=== PATIENT | female | born 1990 | race African-American/Black ===

== ENCOUNTER 2017-12-28 07:09 | Outpatient (CLI) | payer MEDICAID, SELFPAY ==
[2017-12-28 07:30] LABS: HCT 29.6 % (36.0-46.0); HGB 10.4 g/dL (12.0-15.5); Mean Corp. HGB Concentration 35.1 g/dL (32.0-36.0); Mean Corpuscular Hemoglobin 26.3 pg (27.0-33.0); Mean Corpuscular Volume 74.7 fL (80-95); Mean Platelet Volume 11.6 fL (8.0-11.0); Platelet Count 187 x1000/uL (130-400); RBC 3.96 m/cumm (4.00-5.20); RBC Distribution Width 12.6 % (11.7-14.6)
[2017-12-28 07:43] LABS: Glucose,1 Hr (Glucola) 108 mg/dL (80-140)
== END 2017-12-28 07:10 ==
PROVIDERS: PCP Nurse Practitioner Gerontology; Visit Provider Advanced Practice Midwife
DX: Z34.82 Encounter for supervision of other normal pregnancy, second trimester (principal); Z3A.28 28 weeks gestation of pregnancy
CPT/HCPCS: 36415; 82950; 85027

== ENCOUNTER 2018-02-18 15:33 | Outpatient (REF) | payer MEDICAID, SELFPAY | END 2018-02-18 15:53 | LOC: LBN 15:33 | PROVIDERS: PCP Nurse Practitioner Gerontology; Visit Provider Advanced Practice Midwife | DX: Z34.93 Encounter for supervision of normal pregnancy, unspecified, third trimester (principal); Z36.85 Encounter for antenatal screening for Streptococcus B | CPT/HCPCS: 87081 ==

== ENCOUNTER 2018-03-09 15:25 | Inpatient (IN) | payer MEDICAID, SELFPAY ==
[2018-03-09 16:41] LABS: HCT 30.9 % (36.0-46.0); HGB 10.5 g/dL (12.0-15.5); Mean Corpuscular Hemoglobin 25.3 pg (27.0-33.0); Platelet Count 142 x1000/uL (130-400); RBC 4.15 m/cumm (4.00-5.20); RBC Distribution Width 13.3 % (11.7-14.6); White Blood Cell Count 8.65 k/cumm (4.4-10.8)
[2018-03-09 17:24] LABS: Mean Corpuscular Volume 74.5 fL (80-95)
[2018-03-09] MEDS: Oxytocin 10 UNITS/ML VIAL IM (17:39)
[2018-03-09] MEDS: Hamamelis Leaf/Glycerin 100 EACH BOX PR (18:29)
[2018-03-09] MEDS: Ibuprofen 600 MG TAB PO ×2 (18:29→23:58)
[2018-03-09] MEDS: Acetaminophen 325 MG TAB 650 MG PO ×2 (18:30→22:40)
[2018-03-10] MEDS: Ibuprofen 600 MG TAB PO ×2 (06:35→13:38)
[2018-03-10 11:32] LABS: HCT 26.7 % (36.0-46.0); HGB 9.2 g/dL (12.0-15.5); Mean Corp. HGB Concentration 34.5 g/dL (32.0-36.0); Mean Corpuscular Hemoglobin 25.8 pg (27.0-33.0); Mean Corpuscular Volume 74.8 fL (80-95); Mean Platelet Volume 13.3 fL (8.0-11.0); Platelet Count 143 x1000/uL (130-400); RBC 3.57 m/cumm (4.00-5.20); RBC Distribution Width 13.1 % (11.7-14.6); White Blood Cell Count 11.82 k/cumm (4.4-10.8)
[2018-03-10] MEDS: Acetaminophen 325 MG TAB 650 MG PO ×2 (13:37→17:13)
== END 2018-03-10 20:00 | disposition home or self-care (01) | DRG 807 ==
PROVIDERS: Admitting Provider Advanced Practice Midwife; PCP Nurse Practitioner Gerontology; Visit Provider Advanced Practice Midwife
DX: O69.81X0 Labor and delivery complicated by cord around neck, without compression, not applicable or unspecified (principal); Z37.0 Single live birth; O62.3 Precipitate labor; Z3A.38 38 weeks gestation of pregnancy; O99.02 Anemia complicating childbirth; D64.9 Anemia, unspecified
CPT/HCPCS: 36415; 85027; 86850; 86900; 86901

== ENCOUNTER 2018-04-20 16:38 | Outpatient (CLI) | payer MEDICAID, SELFPAY ==
[2018-04-20 17:27] LABS: PROTEIN 25.2 mg/dL
[2018-04-20 18:32] LABS: HCT 36.1 % (36.0-46.0); HGB 12.3 g/dL (12.0-15.5); Mean Corp. HGB Concentration 34.1 g/dL (32.0-36.0); Mean Corpuscular Hemoglobin 25.1 pg (27.0-33.0); Mean Corpuscular Volume 73.5 fL (80-95); Mean Platelet Volume 12.7 fL (8.0-11.0); Platelet Count 250 x1000/uL (130-400); RBC 4.91 m/cumm (4.00-5.20); RBC Distribution Width 13.5 % (11.7-14.6); White Blood Cell Count 9.39 k/cumm (4.4-10.8)
[2018-04-20 19:22] LABS: COMMENT (LAB VIEW ONLY) 266.74 mg/dL; Prot/Crea Ur Ratio 0.09
[2018-04-20 19:26] LABS: ALT 22 U/L (12-78); AST 14 U/L (15-37); Albumin 3.9 g/dL (3.4-5.0); Alkaline Phosphatase 92 U/L (46-116); Bilirubin, Direct 0.07 mg/dL (0.00-0.20); Bilirubin, Total 0.2 mg/dL (0.2-1.0); CREATININE 0.67 mg/dL (0.55-1.02); Total Protein 7.3 g/dL (6.4-8.2); Uric Acid 4.6 mg/dL (2.6-6.0)
== END 2018-04-20 16:58 ==
PROVIDERS: PCP Nurse Practitioner Gerontology; Visit Provider Advanced Practice Midwife
DX: Z39.2 Encounter for routine postpartum follow-up (principal)
CPT/HCPCS: 36415; 80076; 85027; 82565; 84156; 84550

== ENCOUNTER 2018-04-20 17:17 | Outpatient (REF) | payer MEDICAID, SELFPAY ==
--- NOTE | 2018-04-20 16:15 | PAPFT_PTH ---
PATIENT: Celia Gordon LOC: [facility] U#:[id number] AGE/SX: 28/F ROOM: RE04/20/[address]: Donovan Emmnauel RN : 1990 BED: DIS: 04/20/2018 SPEC #: [id number] RECD: 04/20/18 18:03 STATUS: VALERY REAkhil #: [id number] ZACH: 04/20/18 16:[address]: Donovan Emmanuel DEPT: [facility] Cytology RECD BY: Marylou Lima ENTERED: 04/20/18 18:04 SP TYPE: PAPFT OTHR DR: Gilma Gupta Tissues: 1 - CX/ENDOCX FOR PAP SMEARS Procedures: PAP THIN PREP/[facility] Screening HPV DNA PROBE Comments: [id number]
[2018-04-22 14:45] LABS: Chlamydia Result Negative; GC Result Negative; Specimen Description CERVIX
== END 2018-04-20 17:37 ==
LOC: LBN 17:17
PROVIDERS: PCP Nurse Practitioner Gerontology; Visit Provider Advanced Practice Midwife
DX: Z11.3 Encounter for screening for infections with a predominantly sexual mode of transmission (principal); Z12.4 Encounter for screening for malignant neoplasm of cervix; Z11.51 Encounter for screening for human papillomavirus (HPV); Z39.2 Encounter for routine postpartum follow-up
CPT/HCPCS: 87491; 87591; 88142; 87624

== ENCOUNTER 2019-11-01 12:11 | Outpatient (REF) | payer MEDICAID, SELFPAY ==
[2019-11-01 21:50] LABS: Calculated LDL 94 mg/dL (<100); Cholesterol 171 mg/dL (<200); HDL Cholesterol 49 mg/dL (40-60); Triglyceride 142 mg/dL (<150)
[2019-11-01 22:08] LABS: Hemoglobin A1C 5.7 % (3.8-5.6)
== END 2019-11-01 12:31 ==
LOC: LBN 12:11
PROVIDERS: PCP Nurse Practitioner; Visit Provider Nurse Practitioner
DX: Z13.220 Encounter for screening for lipoid disorders (principal); Z13.1 Encounter for screening for diabetes mellitus
CPT/HCPCS: 80061; 83036

== ENCOUNTER 2020-01-06 08:22 | Outpatient (CLI) | payer MEDICAID, SELFPAY ==
[2020-01-09 20:48] LABS: SARS-CoV-2 RNA Undetected (Undetected); SARS-CoV-2 Specimen Source Nasopharynx
== END 2020-01-06 08:42 ==
PROVIDERS: PCP Nurse Practitioner; Visit Provider Nurse Practitioner
DX: Z11.59 Encounter for screening for other viral diseases (principal)
CPT/HCPCS: U0003

== ENCOUNTER 2020-05-17 11:09 | Outpatient (CLI) | payer MEDICAID, SELFPAY ==
[2020-05-19 15:56] LABS: COVID-19 RT-PCR UVMMC Result Negative (Negative)
== END 2020-05-17 11:29 ==
PROVIDERS: PCP Nurse Practitioner; Visit Provider Nurse Practitioner
DX: Z20.828 Contact with and (suspected) exposure to other viral communicable diseases (principal)
CPT/HCPCS: U0003

== ENCOUNTER 2020-09-10 16:07 | Outpatient (REF) | payer MEDICAID, SELFPAY ==
--- NOTE | 2020-09-10 15:10 | PAPFT_PTH ---
PATIENT: Celia Gordon LOC: [facility]#:[id number] AGE/SX: 30/F ROOM: RE09/10/[address]: Rachel Irby NP : 1990 BED: DIS: 09/10/2020 SPEC #: [id number] RECD: 09/10/20 17:49 STATUS: VALERY REAkhil #: [id number] ZACH: 09/10/20 15:[address]: Mahamed INGRAM,Rachel DEPT: [facility] Cytology RECD BY: Marylou Lima ENTERED: 09/10/20 17:49 SP TYPE: PAPFT OTHR DR: Rocio Camarillo, PhD [employer] Tissues: 1 - CX/ENDOCX FOR PAP SMEARS Procedures: PAP THIN PREP/[facility] Screening Comments: [id number] (CHLAMYDIA/GC)
[2020-09-12 07:13] LABS: Chlamydia Result Negative (Negative); GC Result Negative (Negative)
== END 2020-09-10 16:08 | disposition home or self-care (01) ==
LOC: NCHCN 16:07
PROVIDERS: PCP Nurse Practitioner; Visit Provider Nurse Practitioner Women's Health
DX: Z11.3 Encounter for screening for infections with a predominantly sexual mode of transmission (principal); Z12.4 Encounter for screening for malignant neoplasm of cervix
CPT/HCPCS: 87491; 87591; 88142

== ENCOUNTER 2020-10-01 02:28 | Outpatient (CLI) | payer MEDICAID, SELFPAY ==
--- NOTE | 2020-10-01 06:45 | DI.US_ITS ---
Exam(s) US PELVIS EXAM: US PELVIS CLINICAL HISTORY: Dyspareunia, Pelvic pain, ?R ovarian cyst,R10.2 TECHNIQUE: Ultrasound of the pelvis was performed both transabdominal and transvaginal. COMPARISON: US OB US 2-3 TRIMESTER TRANSABD*P from 10/15/2017 FINDINGS: UTERUS: Nongravid anteverted Measures 8.3 cm length x 4.4 cm AP x 4.7 cm wide. There are no uterine fibroids. Endometrial thickness measures 5-6 mm. There is no fluid in the endometrial canal. CERVIX: There are no obvious nabothian cysts. RIGHT OVARY: Measures 3.6 x 2.1 x 2.0 cm Contains small follicular cysts. All less than 1 cm. LEFT OVARY: Measures 0.9 x 1.6 x 1.6 cm Contains small follicular cysts all less than 1 centimeter. There are no solid lesions in either ovary. No extraovarian adnexal masses. CUL-DE-SAC: No free fluid evident. IMPRESSION: 1. Normal appearing uterus and age-appropriate endometrium. 2. No abnormal ovarian findings. 3. No free fluid evident in the adnexal regions and cul-de-sac. DATA REPOSITORY:
== END 2020-10-01 02:48 ==
PROVIDERS: PCP Nurse Practitioner; Visit Provider Nurse Practitioner Women's Health
DX: R10.2 Pelvic and perineal pain (principal); N94.10 Unspecified dyspareunia; Z11.59 Encounter for screening for other viral diseases
CPT/HCPCS: 76856

== ENCOUNTER 2021-04-01 09:00 | Outpatient (CLI) | payer MEDICAID, SELFPAY ==
[2021-04-01 09:18] LABS: Source Nasal/Nares
[2021-04-01 12:50] LABS: COVID-19 PCR Negative (Negative)
== END 2021-04-01 09:01 | disposition home or self-care (01) ==
LOC: LBN 09:01
PROVIDERS: Family Medicine; PCP Nurse Practitioner; Visit Provider Nurse Practitioner Family
DX: Z20.822 Contact with and (suspected) exposure to COVID-19 (principal)
CPT/HCPCS: 87635

== ENCOUNTER 2021-04-27 15:10 | Emergency (ER) | payer MEDICAID, SELFPAY ==
[2021-04-27] VITALS (19 sets, daily range): BP systolic 116–136; BP diastolic 67–94; PULSE 70–105; RESP 11–31; TEMP 36; O2SAT 98–100
--- NOTE | 2021-04-27 15:15 | RT.EKG_ITS ---
APPROVED REPORT Exam: Resting ECG Reason for Exam: palpitations Patient Location: E HR:89 bpm ECG Measurements Heart Rate 89 AXIS WV 158 P 51 QRSd 77 QRS 62 QT 341 T 33 QTc 415 Conclusion Sinus rhythm...normal P axis, V-rate 60- 99
--- NOTE | 2021-04-27 16:00 | DI.RAD_ITS ---
Exam(s) XR CHEST 1V IN DI DEPT EXAM: XR CHEST 1V IN DI DEPT CLINICAL HISTORY: Palpitations, please shield abdomen TECHNIQUE: 2D digital imaging was performed of the chest. One image was obtained. An AP view was ob tained. COMPARISON: CR CHEST 2 VIEWS PA,LAT from 12/10/2015 FINDINGS: MEDIASTINUM: Normal. HEART: Normal. PULMONARY VASCULATURE: Normal. LUNGS: Clear. PLEURAL SPACE: No pleural effusion or pneumothorax. BONE:Within normal limits for the patient's age. OTHER FINDINGS:Normal. IMPRESSION: No acute pulmonary findings. DATA REPOSITORY: RADIATION DOSE DELIVERED:
--- NOTE | 2021-04-27 16:11 | ED.GENADUL_ITS ---
Discharge Plan Disposition Patient Disposition: HOME Condition: Improving Discharge Details Clinical Impression: PAC (premature atrial contraction) Primary Care Provider: Rocio Camarillo ED Provider: Umesh Esparza Home Meds and New Rx's Prescriptions: Continued PrePlus 27 mg iron- 1 mg tablet 1 tab PO DAILY Qty: 90 RF: 4 labetalol 100 mg tablet 100 mg PO BID Qty: 90 RF: 1 Discharge Instructions Instructions: Premature Atrial Contractions (ED) Additional Instructions: Your monitor today showed evidence of premature atrial contractions. Home to rest. Continue to hydrate with small, frequent sips of fluids. Please follow-up with Dr. Briceno in clinic for recheck. Continue your routine medication. As we discussed I have ordered a Holter monitor to the respiratory therapy department. We will plan on this being placed on Thursday, but you will receive a phone call from the respiratory therapy department. Medical Decision Making 31-year-old female who is 11 weeks . She has a history of hypertension for which she was previously maintained on amlodipine which was switched to labetalol approximate 4 weeks ago due to early . At home today while at rest patient felt palpitations intermittently lasting seconds to minutes and extinguishing on their own. She did not have a fall or syncope. She is no chest pain or shortness of breath. Patient arrives to ER interactive, pleasant, well-appearing and in no acute distress. She is afebrile, blood pressure 130/94 with pulse of 90. Patient placed on a secured entrance monitor that does demonstrate few intermittent PACs. She is referred for screening chest x-ray to rule out cardiomegaly or mass, as well as screening laboratories. Patient's laboratories are reassuring. No significant electrolyte abnormalities. TSH within normal limits. I do feel she will benefit from outpatient Holter monitor which I will order today. We will arrange follow-up in the outpatient setting for recheck. HPI General Mode of arrival: ambulatory . Date/Time Provider Initiated Documentation: 04/27/21 15:20 . Limitations to Documentation: no limitations . Information obtained by: patient . History of Present Illness 31 year old F presents to the emergency department with the chief complaint of Palpitations, 11 weeks , described as mild, and is localized to the chest. Patient started experiencing this hour(s) and it has been intermittent. No relieving factors improve symptom(s), Patient notes denies chest pain, fever/chills, shortness of breath, syncope and weakness. Patient did receive the following treatments prior to arrival, none Related Data Home Medications Medication Instructions Recorded Confirmed labetalol 100 mg tablet 100 mg PO BID #90 tab 03/26/21 04/27/21 vitamin with calcium 1 tab PO DAILY #90 tab 03/26/21 04/27/21 no.72-iron 27 mg-folic acid 1 mg tablet Previous Rx's Medication Instructions Recorded labetalol 100 mg tablet 100 mg PO BID #90 tab 03/26/21 vitamin with calcium 1 tab PO DAILY #90 tab 03/26/21 no.72-iron 27 mg-folic acid 1 mg tablet Allergies Allergy/AdvReac Type Severity Reaction Status Date / Time lactase [From Lactaid] AdvReac Mild Verified 04/27/21 15:50 Estrogens AdvReac Unknown MIGRAINE Verified 04/27/21 15:50 WITH AURA General Stated Complaint: Palpitatns POORNIMA: 2 Review of Systems Narrative: Denies chest pain, shortness of breath. No abdominal pain, no vaginal discharge or bleeding. 6 systems reviewed and otherwise negative PFSH All Active Problems (Updated 04/27/21 @ 17:47 by Umesh Esparza MD) PAC (premature atrial contraction) (Acute) (Acute) Migraine with aura (Acute) Prediabetes (Acute) HTN (hypertension) (Chronic) Medical History Abnormal Pap smear of cervix BMI 34.0-34.9,adult Sickle cell trait Surgical History Cervical Procedure [id number] [facility] Family History Mother Sickle cell trait Essential hypertension Mental disorder Depression Depression Father Sickle cell trait Alcohol abuse Sister Asthma Sister Depression Brother Sickle cell trait Grandmother Essential hypertension Mental disorder Depression Asthma Brother Sickle cell disease Social History Smoking/Tobacco Use Status: Former Tobacco Use Second Hand Exposure: Yes Smoking risk assessment performed?: Yes Alcohol Intake: current Counseling given: No Counseling provided: reduce to 2 or less/day Drug use: Never Substance use type: does not use Counseling given: No Household members: spouse and children Housing: apartment Do you need help understanding health information?: Rarely Pets and animals: No Sexually active: Yes Do you think of yourself as: bisexual Current gender identity: female What is your relationship status?: living with partner How often do you talk on the phone with friends or family?: once per week How often do you get together with friends or relatives?: once per week How often do you attend anglican or taoism services?: decline to answer Do you belong to any clubs or organized social groups?: no Panel score (0-1 are the most socially isolated patients): 1 What type of physical activity do you participate in: walking and bicycling Duration: 30-45 minutes/day Frequency: 3-4 times per week Katerine/Islam: Synagogue Seatbelt use: sometimes Helmet use: No Drive intox or ride w/intox pedicab driver: No Do you feel safe at home: Yes Do you feel safe in your relationship?: Yes Female Reproductive History Menstrual control method: pills (POPs) History History 4 Para 4 Hx # Term Pregnancies Multiple births Hx # Pregnancies Ectopic pregnancies AB induced Hx Number of Living Children AB spontaneous Past Pregnancies Del. Date GA/Weeks # Outcome Route Wgt Sex Labor Lgth Anesthes ia Location [facility] 03/09/18 38 No Successful vaginal 3061.748 g Male 1 hr. 41 min. kellen cruz cnm Exam Narrative Exam Narrative: GEN: awake, alert, oriented 3. Pleasant, well groomed, interactive. HEAD: Normocephalic, atraumatic EYES: PERRL, EOMI NECK: Full ROM, no BLAS, no menigismus CHEST/RESP: Nontender, clear to auscultation bilateral, no wheeze/rhonchi/rales CARDIOVASCULAR: RRR, no murmur, rub luis fernando. 2+ Rad pulse bilateral ABDOMEN: Soft, nontender, no mass. +Bowel sounds EXT: Full ROM, no edema, no rash Neuro: Grossly normal neurologic exam, conversant, interactive. Psych: Speech fluent, thoughts congruent, affect normal Course Vital Signs Vital signs: Vital Signs Temperature 36 C L 04/27/21 15:40 Pulse 90 04/27/21 15:40 Respiratory Rate 18 04/27/21 15:40 Blood Pressure 130/94 H 04/27/21 15:40 Pulse Oximetry 98 04/27/21 15:40 Temperature 36 C L 04/27/21 15:40 Temperature Source Temporal Artery Scan 04/27/21 15:40 Pulse 90 04/27/21 15:40 Respiratory Rate 18 04/27/21 15:40 Respiratory Effort 04/27/21 15:49 Blood Pressure 130/94 H 04/27/21 15:40 Blood Pressure Position Supine 04/27/21 15:40 Pulse Oximetry 98 04/27/21 15:40 Oxygen Delivery Method Room Air 04/27/21 15:40 Oxygen Flow Rate 0 04/27/21 15:40 Pain Level 0 04/27/21 15:40 PAWSS Have you Been Recently Intoxicated or Drunk Within the Last 30 days?: No Have you Ever Experienced Previous Episodes of Alcohol Withdrawal?: No Have you ever Experienced Withdrawal Seizures?: No Have you ever Experienced Delirium Tremens(DT)s?: No Have you ever Experienced Blackouts?: No Have you ever Combined Alcohol with other Downers within the last 90 days?: No Result: 0
[2021-04-27] MEDS: Normal Saline 1,000 ML 1000 ML IV (16:38)
[2021-04-27 16:42] LABS: Abs Immature Grans 0.02 10^3/uL (0.0-0.06); Absolute Basophil Count 0.03 10^3/uL (0.0-0.2); Absolute Eosinophil Count 0.11 10^3/uL (0.0-0.7); Absolute Lymphocyte Count 3.24 10^3/uL (1.2-3.4); Absolute Monocyte Count 0.82 10^3/uL (0.1-0.8); Absolute Neutrophil Count 7.02 10^3/uL (1.2-6.7); Basophils % 0.3; HCT 34.3 % (36.0-46.0); HGB 11.7 g/dL (11.2-15.7); Immature Grans % 0.2; Lymphocytes % 28.8; MCH 25.8 pg (27.0-33.0); MCHC 34.1 % (32.0-36.0); MCV 75.6 fL (80-95); MPV 11.2 fL (8.0-11.0); Monocytes % 7.3; Neutrophils % 62.4; Nucleated RBC 0 %; Platelet Count 286 10^3/uL (130-400); RBC 4.54 10^6/uL (3.93-5.22); RDW 13.5 % (11.7-14.6); RDW-SD 36.6 fL; WBC 11.25 10^3/uL (4.4-10.8)
[2021-04-27 17:06] LABS: TSH 0.54 uIU/mL (0.36-3.74)
[2021-04-27 17:08] LABS: ALT 34 U/L (14-59); AST 23 U/L (15-37); Albumin 3.8 g/dL (3.4-5.0); Alkaline Phosphatase 56 U/L (46-116); Anion Gap 8.1 mmol/L (3-11); BUN 9 mg/dL (7-18); Bilirubin, Total 0.1 mg/dL (0.2-1.0); CO2 25.9 mmol/L (21.0-32.0); CREATININE 0.5 mg/dL (0.55-1.02); Calcium 9.2 mg/dL (8.5-10.1); Chloride 103 mmol/L (98-107); Glucose 85 mg/dL (74-106); Magnesium 2.1 mg/dL (1.8-2.4); Potassium 3.9 mmol/L (3.5-5.1); Sodium 137 mmol/L (136-145); Total Protein 7.6 g/dL (6.4-8.2); Troponin I < 0.05 ng/mL (<0.06)
--- NOTE | 2021-04-27 17:37 | NUR.NOTE ---
Nursing Note: Holter monitor 48hr request faxed to Respiratory Therapy for is possible. Patsy Chan
--- NOTE | 2021-04-27 17:45 | HOLTER_ITS ---
APPROVED REPORT Conclusion This is a 48-hour Holter monitor ordered for palpitations Rhythm throughout was sinus with an average heart rate of 93. Minimum was 66, maximum 138 There was 1 isolated PVC There was no atrial fibrillation, no high-grade AV block, no pauses greater than 3 seconds No patient symptoms were reported
--- NOTE | 2021-04-27 17:50 | DI.VRAD_ITS ---
PROCEDURE INFORMATION: Exam: XR Chest Exam date and time: 04/27/2021 4:11 PM Age: 31 years old Clinical indication: Other: Palpitations TECHNIQUE: Imaging protocol: XR of the chest. Views: 1 view. Total images: 1 COMPARISON: CR CHEST 2 VIEWS PA,LAT 12/10/2015 2:59 PM FINDINGS: Lungs: Lungs are clear. There is no vascular congestion. Pulmonary francisco: Unremarkable contours. Pleural spaces: No pleural effusion or pneumothorax. Heart/Mediastinum: The hilar contours are unremarkable. Mediastinal contours are within normal limits. Bones/joints: Unremarkable. Intraperitoneal space: Visualized upper abdomen is unremarkable. IMPRESSION: No acute findings. Dictated and Authenticated by: Umesh Lauren MD. Ordering:SELINA Calvo MD
--- NOTE | 2021-04-27 18:35 | NUR.NOTE ---
Nursing Note: Referral faxed to [facility] for follow up of palpitations at the end of the week after the holter monitor. Patsy Chan
== END 2021-04-27 17:59 | disposition home or self-care (01) ==
PROVIDERS: Emergency Provider Emergency Medicine; PCP Nurse Practitioner
DX: O26.891 Other specified pregnancy related conditions, first trimester (principal); I49.1 Atrial premature depolarization; Z3A.11 11 weeks gestation of pregnancy; I10 Essential (primary) hypertension
CPT/HCPCS: 36415; 80053; 93005; 96360; 99284; 71045; 83735; 84443; 84484; 85025; 93010; 93225

== ENCOUNTER 2021-04-30 07:30 | Outpatient (RCR) | payer MEDICAID, SELFPAY | END 2021-05-17 23:59 | disposition home or self-care (01) | LOC: RT 07:30 | PROVIDERS: PCP Nurse Practitioner; Visit Provider Emergency Medicine | DX: R00.2 Palpitations (principal) | CPT/HCPCS: 93226 ==

== ENCOUNTER 2021-05-03 03:20 | Outpatient (CLI) | payer MEDICAID, SELFPAY ==
[2021-05-03 10:29] LABS: Kit/Specimen SENT
[2021-05-03 10:51] LABS: Abs Immature Grans 0.03 10^3/uL (0.0-0.06); Absolute Basophil Count 0.02 10^3/uL (0.0-0.2); Absolute Eosinophil Count 0.08 10^3/uL (0.0-0.7); Absolute Lymphocyte Count 2.55 10^3/uL (1.2-3.4); Absolute Monocyte Count 0.63 10^3/uL (0.1-0.8); Absolute Neutrophil Count 5.81 10^3/uL (1.2-6.7); Basophils % 0.2; Eosinophils % 0.9; HCT 31.6 % (36.0-46.0); HGB 10.8 g/dL (11.2-15.7); Immature Grans % 0.3; MCH 25.7 pg (27.0-33.0); MCHC 34.2 % (32.0-36.0); MCV 75.1 fL (80-95); MPV 11.1 fL (8.0-11.0); Monocytes % 6.9; Neutrophils % 63.7; Nucleated RBC 0 %; Platelet Count 261 10^3/uL (130-400); RBC 4.21 10^6/uL (3.93-5.22); RDW 13.2 % (11.7-14.6); RDW-SD 35.8 fL; WBC 9.12 10^3/uL (4.4-10.8)
[2021-05-03 11:42] LABS: TSH (W/Ref FT4) 0.46 uIU/mL (0.36-3.74)
[2021-05-03 11:47] LABS: *AMPHETAMINES SCREEN URINE Negative (Negative); *BARBITURATES SCREEN URINE Negative (Negative); *BENZODIAZEPINES SCREEN URINE Negative (Negative); Cannabinoids THC Negative (Negative); Cocaine Screen,Urine Negative (Negative); METHADONE URINE SCREEN Negative (Negative); OPIATES URINE SCREEN Negative (Negative)
[2021-05-03 11:48] LABS: Tricyclic Antidepressants Negative (Negative)
[2021-05-04 11:27] LABS: HIV-1/2 Ag & Ab Screen Negative (Negative)
[2021-05-06 10:56] LABS: Hepatitis B Surface Ag Negative (Negative)
[2021-05-06 11:22] LABS: Hepatitis C Ab w Rflx HCV PCR Negative (Negative)
[2021-05-06 12:03] LABS: Syphilis Total Ab w/Reflex Nonreactive (Nonreactive)
[2021-05-06 12:38] LABS: Rubella IgG Ab (UVM) Positive (See Note); Varicella IgG Antibody Positive (See Note)
[2021-05-08 10:40] LABS: Result Summary NEGATIVE; Specimen WB Whole Blood
[2021-05-09 12:30] LABS: Buprenorphine Negative ng/mL (Cutoff: 5.0); Norbuprenorphine Negative ng/mL (Cutoff: 2.5)
== END 2021-05-03 03:21 | disposition home or self-care (01) ==
LOC: LBO 03:20
PROVIDERS: PCP Nurse Practitioner; Visit Provider Advanced Practice Midwife
DX: Z34.81 Encounter for supervision of other normal pregnancy, first trimester (principal)
CPT/HCPCS: 80307; 86787; 86803; 86850; 86900; 86901; 87340; 87389; 81220; 84443; 85025; 86762; 86780; 87086

== ENCOUNTER 2021-05-24 03:57 | Outpatient (CLI) | payer MEDICAID, SELFPAY | END 2021-05-24 03:58 | disposition home or self-care (01) | LOC: LBO 03:57 | PROVIDERS: PCP Nurse Practitioner; Visit Provider Advanced Practice Midwife ==

== ENCOUNTER 2021-06-21 00:16 | Outpatient (CLI) | payer MEDICAID, SELFPAY ==
--- NOTE | 2021-06-21 06:35 | DI.US_ITS ---
Exam(s) US OB 2-3 TRIMESTER EXAM: US OB 2-3 TRIMESTER CLINICAL HISTORY: anatomy survey,z34.90. TECHNIQUE: Transabdominal obstetrical ultrasound performed. COMPARISON: US US PELVIS from 10/01/2020 FINDINGS: Transabdominal obstetrical ultrasound performed. FINDINGS: Number of fetuses: One. position: Cephalic heart rate: 140 bpm. Placental location: There is a grade 0 fundal placenta. No evidence of previa. Amniotic fluid index: Amount of fluid is within normal limits. ANATOMICAL SURVEY: Within normal limits. BIOMETRIC DATA: BPD: 4.5cm consistent with 19 weeks 4 days HC: 17.0cm consistent with 19 weeks 4 days AC: 13.9cm consistent with 19 weeks 2 days FL: 2.9cm consistent with 18 weeks 6 days Cisterna Magna: 5 mm Cerebellum: 2.0 cm EFW: 278 grms 10% Composite Age: 19 weeks 2 days EDC by US: 11/13/2021 Heart Rate: 140BPM ANATOMICAL SURVEY: Four-chambered heart: Unremarkable. LVOT: Unremarkable. RVOT: Unremarkable. Left-sided stomach: Unremarkable. urinary bladder: Unremarkable. Bilateral kidneys: Unremarkable. Three-vessel cord: Unremarkable. Cord insertion: Unremarkable. Posterior fossa:Unremarkable. ventricles: Unremarkable. nose: Unremarkable. lips: Unremarkable. palate: Unremarkable. spine: Unremarkable. Two arms and two legs: Unremarkable. IMPRESSION: 1. Single live intrauterine gestation as above. 2. Normal anatomic survey. DATA REPOSITORY:
== END 2021-06-21 00:36 ==
PROVIDERS: PCP Nurse Practitioner; Visit Provider Advanced Practice Midwife
DX: Z34.92 Encounter for supervision of normal pregnancy, unspecified, second trimester (principal); Z3A.19 19 weeks gestation of pregnancy
CPT/HCPCS: 76805

== ENCOUNTER 2021-06-21 17:10 | Outpatient (REF) | payer MEDICAID, SELFPAY ==
[2021-06-24 13:59] LABS: Chlamydia Result Negative (Negative); GC Result Negative (Negative)
== END 2021-06-21 17:11 | disposition home or self-care (01) ==
LOC: LBN 17:10
PROVIDERS: PCP Nurse Practitioner; Visit Provider Advanced Practice Midwife
DX: Z34.92 Encounter for supervision of normal pregnancy, unspecified, second trimester (principal)
CPT/HCPCS: 87491; 87591; 87086

== ENCOUNTER 2021-08-19 04:17 | Outpatient (CLI) | payer MEDICAID, SELFPAY ==
[2021-08-19 10:18] LABS: Glucose,1 Hr (Glucola) 105 mg/dL (80-140)
[2021-08-19 10:20] LABS: HCT 30.6 % (36.0-46.0); HGB 10.3 g/dL (11.2-15.7); MCH 25.6 pg (27.0-33.0); MCHC 33.7 % (32.0-36.0); MCV 75.9 fL (80-95); MPV 12.6 fL (8.0-11.0); Platelet Count 194 10^3/uL (130-400); RBC 4.03 10^6/uL (3.93-5.22); RDW 12.3 % (11.7-14.6); WBC 8.23 10^3/uL (4.4-10.8)
== END 2021-08-19 04:18 | disposition home or self-care (01) ==
LOC: LBO 04:17
PROVIDERS: Advanced Practice Midwife; PCP Nurse Practitioner; Visit Provider Advanced Practice Midwife
DX: Z34.93 Encounter for supervision of normal pregnancy, unspecified, third trimester (principal); Z3A.28 28 weeks gestation of pregnancy
CPT/HCPCS: 36415; 82950; 85027

== ENCOUNTER → 2021-10-01 01:29 | Outpatient (CLI) | payer MEDICAID, SELFPAY ==
--- NOTE | 2021-10-01 07:28 | DI.US_ITS ---
Exam(s) US OB ILZZETTE WEIGHT EXAM: US OB LIZZETTE WEIGHT CLINICAL HISTORY: interval growth, f/u previous us,z86.16,O26.842. TECHNIQUE: Transabdominal obstetrical ultrasound was performed. COMPARISON: US US OB 2-3 TRIMESTER from 06/21/2021 FINDINGS: There is a single viable intrauterine gestation with cardiac activity identified-160 bpm The fetus is presently in cephalic position . Amniotic fluid: There is a normal amount of amniotic fluid with an LIZZETTE of 18.2cm. Placental location: The placenta is anterior grade 2,with no evidence of placenta previa. Dating parameters place this at approximately 35 weeks gestational age, implying MARIBEL of Oct. BPD measures 34 weeks and 6 days HC measures 36 weeks and 0 days AC measures 34 weeks and 6 days FL measures 34 weeks and 0 days Estimated weight is 2498 gm-5 pounds, 8 ounces Fetus is at the 50th percentile on the Hadlock scale. IMPRESSION:: Viable 3rd trimester gestation, as described above. DATA REPOSITORY:
== END ==
PROVIDERS: PCP Nurse Practitioner; Visit Provider Advanced Practice Midwife
DX: O26.843 Uterine size-date discrepancy, third trimester (principal); Z3A.35 35 weeks gestation of pregnancy
CPT/HCPCS: 76816

== ENCOUNTER 2021-10-09 10:09 | Outpatient (REF) | payer MEDICAID, SELFPAY ==
[2021-10-10 15:32] LABS: Chlamydia Result Negative (Negative); GC Result Negative (Negative)
== END 2021-10-09 10:10 | disposition home or self-care (01) ==
LOC: LBN 10:09
PROVIDERS: PCP Nurse Practitioner; Visit Provider Advanced Practice Midwife
DX: Z34.93 Encounter for supervision of normal pregnancy, unspecified, third trimester (principal); Z11.3 Encounter for screening for infections with a predominantly sexual mode of transmission; Z3A.35 35 weeks gestation of pregnancy
CPT/HCPCS: 87491; 87591

== ENCOUNTER 2021-10-16 06:03 | Outpatient (CLI) | payer MEDICAID, SELFPAY ==
[2021-10-16 08:07] VITALS: BP 108/73; PULSE 90; TEMP 36.9
[2021-10-16 08:21] VITALS: BP 108/73; PULSE 90
--- NOTE | 2021-10-16 09:18 | W.OBNST ---
Date of service: 10/16/21 Time of Service: 09:00 NST Evaluation Reason for NST Reasons for Nonstress Test: OTHER, SEE COMMENT Reason for NST Other: Post COVID Gestational Age Gestational Age in Weeks and Days: 36 Weeks and 5Days Test and Monitor Explained Test/Monitor Explained: Test Explained and Monitor Explained Vital Signs Blood Pressure: 108/73 Pulse: 90 Temperature: 98.4 F Urine Results Urine Protein: Negative Urine Ketones: Negative Urine Glucose: Negative Urine Blood: Negative NST Information Date on Monitor: 10/16/21 Time on Monitor: 08:07 Date off Monitor: 10/16/21 Time off Monitor: 08:57 Total Time on Monitor: 50 NST Interventions: PO Hydration NST Evaluation Patient States Movement: Present FHR Baseline: 150 Variability: Moderate 6-25 bpm Accelerations: 15x15 Decelerations: None NST Results: Reactive Note NST Note Note: NST for history of COVID this and HTN currently not on medications. With PO hydration and popsicle NST became reactive No signs of labor. will return on 10/21/21 for NST and office visit. SHANE NST Reviewed and Verified by: Maite Kent
[2021-10-16 09:20] VITALS: BP 108/73; PULSE 90; TEMP 36.9
== END 2021-10-16 09:05 | disposition home or self-care (01) ==
LOC: BCD 06:09 → OBS 07:59
PROVIDERS: PCP Nurse Practitioner; Visit Provider Advanced Practice Midwife
DX: O98.513 Other viral diseases complicating pregnancy, third trimester (principal)
CPT/HCPCS: 59025

== ENCOUNTER 2021-10-16 18:17 | Outpatient (REF) | payer MEDICAID, SELFPAY ==
[2021-10-16 17:05] LABS: *AMPHETAMINES SCREEN URINE Negative (Negative); *BARBITURATES SCREEN URINE Negative (Negative); *BENZODIAZEPINES SCREEN URINE Negative (Negative); Cannabinoids THC Negative (Negative); Cocaine Screen,Urine Negative (Negative); METHADONE URINE SCREEN Negative (Negative); OPIATES URINE SCREEN Negative (Negative)
[2021-10-16 17:10] LABS: Tricyclic Antidepressants Negative (Negative)
[2021-10-23 09:07] LABS: Buprenorphine Negative ng/mL (Cutoff: 5.0); Norbuprenorphine Negative ng/mL (Cutoff: 2.5)
== END 2021-10-16 18:18 | disposition home or self-care (01) ==
LOC: LBN 18:17
PROVIDERS: PCP Nurse Practitioner; Visit Provider Advanced Practice Midwife
DX: Z34.93 Encounter for supervision of normal pregnancy, unspecified, third trimester (principal); Z3A.36 36 weeks gestation of pregnancy; Z36.85 Encounter for antenatal screening for Streptococcus B
CPT/HCPCS: 80307; 87081

== ENCOUNTER 2021-10-21 08:05 | Outpatient (CLI) | payer MEDICAID, SELFPAY ==
[2021-10-21 08:24] VITALS: BP 118/79; PULSE 105; TEMP 36.6
[2021-10-21 09:27] VITALS: BP 118/79; PULSE 105
--- NOTE | 2021-10-21 10:10 | W.OBNST ---
Date of service: 10/21/21 Time of Service: 09:30 NST Evaluation Reason for NST Reasons for Nonstress Test: CHRONIC HYPERTENSION Gestational Age Gestational Age in Weeks and Days: 37 Weeks and 3Days Test and Monitor Explained Test/Monitor Explained: Test Explained, Monitor Explained and Patient Verbalized Understanding Vital Signs Blood Pressure: 118/79 Pulse: 105 Temperature: 97.9 F Urine Results Urine Protein: Negative Urine Ketones: Negative Urine Glucose: Negative Urine Blood: Negative NST Information Date on Monitor: 10/21/21 Time on Monitor: 08:19 Date off Monitor: 10/21/21 Time off Monitor: 09:21 Total Time on Monitor: 62 NST Interventions: PO Hydration NST Evaluation Patient States Movement: Present FHR Baseline: 140 Variability: Moderate 6-25 bpm Accelerations: 15x15 Decelerations: None NST Results: Reactive Note NST Note Note: NST is reactive CAT I NST Reviewed and Verified by: Maite Kent
[2021-10-21 10:11] VITALS: BP 118/79; PULSE 105; TEMP 36.6
== END 2021-10-21 09:30 | disposition home or self-care (01) ==
LOC: BCD 08:07 → OBS 08:13
PROVIDERS: PCP Nurse Practitioner; Visit Provider Advanced Practice Midwife
DX: O13.3 Gestational [pregnancy-induced] hypertension without significant proteinuria, third trimester (principal)
CPT/HCPCS: 59025

== ENCOUNTER 2021-10-24 14:23 | Inpatient (IN) | payer MEDICAID, SELFPAY ==
[2021-10-24] VITALS (14 sets, daily range): BP systolic 102–114; BP diastolic 61–78; PULSE 80–113; RESP 18; TEMP 36.4–37.1
[2021-10-24 14:50] LABS: HCT 29.4 % (36.0-46.0); MCH 25.2 pg (27.0-33.0); MCV 74 fL (80-95); Platelet Count 128 10^3/uL (130-400); RBC 3.97 10^6/uL (3.93-5.22); RDW 13.1 % (11.7-14.6); RDW-SD 35.1 fL
--- NOTE | 2021-10-24 15:01 | HPE_ITS ---
Date of service: 10/24/21 Time of Service: 15:02 Assessment and Plan Assessment and plan (1) Spontaneous onset of labor: Status: Acute Assessment and plan: Admit to Center. Comfort measures. Covid- 19 test. Celia requests to use th etub for comfort. Anticipate . OB-HPI Labor/Delivery History of Present Illness Reason for Visit: NST Chief Complaint: Uterine Contractions. MARIBEL Calculator Estimated Delivery Date Method Current WG Current Estimate 11/13/21 Ultrasound #1 37w 1d Other Estimates 11/06/21 LMP (Certain) 38w 1d Comments: Francisco experienced bleeding and contractions at home. She is here to rule out labor. History of Present Expected Delivery Route/Plan - CNM (collab d/t cHTN) FOB/ - Jose Angel Olsen (2nd baby together) BB yes to circ / GBS neg /Declines IOL Desires to use tub Jose Angel for labor support. Specific Issues/Plan 1. cHTN since last , Labetalol 100 mg daily, 1a. growth ultrasounds monthly. 1b. Stopped labetalol at 27 weeks. Consider IOL at term. 2. Seen in ED for palpitations 04/27, Holter done, f/up with PCP 05/07 3. Pt & FOB are vaccinated against COVID, not boosted 3a. Covid infection 05/29/2021. EFW 10 %ile at 19 wks. Growth scan @ 32 wks 50% LIZZETTE 18.2 4. cfDNA and CF screens drawn 05/03: CF carrier negative, Panorama LR / male 5. BMI 34, early glucola needed. As of 23 wks, pt has not done this test. Will do @ 27 wks 6. Advised to take low dose ASA 81mg/162mg alternating daily, start @ 12 wks 7. HGB C trait, sickle cell trait - neg 08/[address] [facility] 8. Hgb 10.8 with initial labs, consider education and supplement at next visit- she is taking PNV with iron, will recheck at 27 weeks. 8a. Hgb 10.3 at 27 weeks. 9. Desires permanent sterilization. 09/02/21 Medicaid form signed. Pt counseled re: pros and cons of immediate PPTL vs interval tubal. PFSH All Active Problems (Updated 10/24/21 @ 15:05 by Maite Barba CNM) Spontaneous onset of labor (Acute) Screen for STD (sexually transmitted disease) (Acute) History of 2019 novel coronavirus disease (COVID-19) (Acute) COVID+ on 06/07/21 Size of fetus inconsistent with dates in second trimester (Acute) Anemia affecting fifth (Acute) PAC (premature atrial contraction) (Acute) (Acute) Migraine with aura (Acute) Prediabetes (Acute) HTN (hypertension) (Chronic) Medical History Abnormal Pap smear of cervix BMI 34.0-34.9,adult Sickle cell trait Surgical History Cervical Procedure [id number] [facility] Family History Mother Sickle cell trait Essential hypertension Mental disorder Depression Depression Father Sickle cell trait Alcohol abuse Sister Asthma Sister Depression Brother Sickle cell trait Grandmother Essential hypertension Mental disorder Depression Asthma Brother Sickle cell disease Social History Smoking/Tobacco Use Status: Former Tobacco Use Second Hand Exposure: Yes Smoking risk assessment performed?: Yes Alcohol Intake: current Counseling given: No Counseling provided: reduce to 2 or less/day Drug use: Never Substance use type: does not use Counseling given: No Household members: spouse and children Housing: apartment Do you need help understanding health information?: Rarely Pets and animals: No Sexually active: Yes Do you think of yourself as: bisexual Current gender identity: female What is your relationship status?: living with partner How often do you talk on the phone with friends or family?: once per week How often do you get together with friends or relatives?: once per week How often do you attend jainism or adventism services?: decline to answer Do you belong to any clubs or organized social groups?: no Panel score (0-1 are the most socially isolated patients): 1 What type of physical activity do you participate in: walking and bicycling Duration: 30-45 minutes/day Frequency: 3-4 times per week Katerine/Confucianism: Taoism Seatbelt use: sometimes Helmet use: No Drive intox or ride w/intox auto crane driver: No Do you feel safe at home: Yes Do you feel safe in your relationship?: Yes Female Reproductive History Menstrual control method: pills History History 5 Para 4 Hx # Term Pregnancies 4 Multiple births 0 Hx # Pregnancies 0 Ectopic pregnancies 0 AB induced 0 Hx Number of Living Children 4 AB spontaneous 0 Past Pregnancies Del. Date GA/Weeks # Outcome Route Wgt Sex Labor Lgth Anesthes ia Location Prov Complic 11/15/06 39 No Successful vaginal 6 lb 3 oz Female Was age 16 at delivery, 6hr spont labor with 4 hrs of pushing, had epidural [facility] 11/17/09 40 No Successful vaginal 7 lb 3 oz Female 4-5 hr spont labo r [facility] 05/12/12 39 No Successful vaginal 7 lb 2 oz Female 4 hrs, spont labo r [facility] 03/09/18 38 No Successful vaginal 6 lb 12 oz Male 1 hr. 41 min. [facility] [place] Delivery Date: 11/15/06 Last Updated by: Kaye Lucero teen . [place] Delivery Date: 11/17/09 Last Updated by: Kaye Lucero uncomplicated . [place] Delivery Date: 05/12/12 Last Updated by: Kaye Lucero uncomplicated . [place] Delivery Date: 03/09/18 Last Updated by: Kaye Lucero uncomplicated waterbirth, developed HTN at 6 wks , been on anti- HTN med ever since. Jose Angel Meds Allergies and Home Medications Allergies Allergy/AdvReac Type Severity Reaction Status Date / Time lactase [From Lactaid] AdvReac Mild Verified 10/21/21 10:02 Estrogens AdvReac Unknown MIGRAINE Verified 10/21/21 10:02 WITH AURA Home Medications Medication Instructions Recorded Confirmed Type vitamin with calcium 1 tab PO DAILY #90 tabs 03/26/21 10/21/21 Rx no.72-iron 27 mg-folic acid 1 mg tablet (PrePlus) aspirin 81 mg tablet,delayed 81 mg PO DAILY #90 tabs 05/03/21 10/21/21 Rx release ferrous sulfate 324 mg (65 mg 324 mg PO DAILY #90 tabs 08/19/21 10/21/21 Rx iron) tablet,delayed release Exam Physical Exam Vital signs: Temp Pulse BP 98.8 F 108 H 114/76 10/24/21 13:42 10/24/21 13:42 10/24/21 13:42 Detailed Labor and Delivery Exam Dilation: 6 Effacement (%): 90 station: -2 Cervix position: mid Consistency: soft Fox Score: Cervical Points Exam 0 1 2 3 Dilation Closed 1-2cm 3-4 cm 5-6cm Effacement 0-30% 40-50% 60-70% 80% Consistency Firm Medium Soft Station -3 -2 -1,0 +1,+2 Position Posterior Mid Anterior Amniotic Membrane Status: Intact Monitor Mode: External Contraction Frequency(min): every 3-4 Contraction Duration(sec): 60 Fetus A Heart Rate Baseline: 140 Monitor Accelerations: 15 X 15 Monitor Decelerations: None Variability: Moderate (6-25 BPM) Presentation: Vertex Categories: Category I Respiratory Exam Respiratory Exam: Normal Cardiovascular Exam Cardiovascular Exam: Normal Abdominal Exam Abdominal Exam: Normal Exam Exam: Normal Extremities Exam Extremities Exam: Normal Skin Exam Skin Exam: Normal Results Abnormal Lab Findings: Abnormal Labs 10/24/21 14:40 Hgb 10.0 L Hct 29.4 L MCV 74 L MCH 25.2 L Plt Count 128 L Risk Assessment Risk for Shoulder Dystocia Historical/Initial OB: POSITIVE FOR: Pre- BMI>30; NEGATIVE FOR: Pelvic Abnormality, Previous Shoulder Dystocia or Previous Macrosomia Increased Risk?: No Delivery Plan @ 36wks: NVD expected. KH Risk for Pre-Eclampsia Date Initiated/Initials: start 81 mg ASA @ 12 wk Yes, if one or more: POSTIVE FOR: Chronic HTN; NEGATIVE FOR: Hx Pre-E/Gest HTN, Multiple Gestation, Pre-gestational DM, Renal Disease, Systemic Lupus or APA Syndrome Yes, if 2 or more: POSITIVE FOR: BMI>30 and ethinicty; NEGATIVE FOR: Nulliparity, Age>= 35 yrs, >10yr btwn pregnancies, Mother/Sister w/ Pre-E or Previous IUGR Risk for Post- Hemorrhage Initial: NEGATIVE FOR: Multiple Gestation, Previous PPH, Known Clotting Deficiency, Grand Multiparity or Anticoagulation At Risk?: No Risks Reviewed Risks Reviewed Upon Admission: Yes
[2021-10-24 15:51] LABS: Source Nasal/Nares
--- NOTE | 2021-10-24 16:44 | W.OBNST ---
Date of service: 10/24/21 Time of Service: 16:44 NST Evaluation Reason for NST Reasons for Nonstress Test: OTHER, SEE COMMENT Reason for NST Other: rule out labor Gestational Age Gestational Age in Weeks and Days: 37 Weeks and 1Days Test and Monitor Explained Test/Monitor Explained: Test Explained Vital Signs Blood Pressure: 114/76 Pulse: 108 Temperature: 98.8 F NST Information Date on Monitor: 10/24/21 Time on Monitor: 13:36 Date off Monitor: 10/24/21 Time off Monitor: 14:50 Total Time on Monitor: 74 NST Interventions: PO Hydration and Notify Provider NST Evaluation Patient States Movement: Present FHR Baseline: 150 Variability: Moderate 6-25 bpm Decelerations: Early NST Results: Reactive Note NST Note Note: recative NST. Having resular moderate strength contractions, admitted in early labor NST Reviewed and Verified by: Maite Barba
[2021-10-24 16:45] LABS: COVID-19 PCR Negative (Negative)
--- NOTE | 2021-10-24 20:28 | W.PM.OBNL1 ---
Date of service: 10/24/21 Time of Service: 20:28 Pelvic Exam Dilation: 6 Effacement (%): 100 Cervix Position: posterior Consistency: soft Contractions Monitor Mode: External Contraction Frequency(min): every 4 Contraction Duration(sec): 60 Intensity: Moderate Fetus A Monitor: External (US) Heart Rate Baseline: 130 Presentation: Vertex Variability: Moderate (6-25 BPM) Categories: Category I FHR Rhythm: Regular Accelerations: 15 X 15 Decelerations: None Amniotic Membrane Status: Ruptured Rupture Method: Artifical Amniotic Fluid: Clear Amount: moderate Assessment and Plan Assessment and plan (1) Spontaneous onset of labor: Status: Acute Assessment and plan: Comfort measures. Anticipate Objective Abnormal lab results 10/24/21 Range/Units 14:40 Hgb 10.0 L (11.2-15.7) g/dL Hct 29.4 L (36.0-46.0) % MCV 74 L (80-95) fL MCH 25.2 L (27.0-33.0) pg Plt Count 128 L (130-400) 10^3/uL Temp Pulse BP 97.5 F L 92 H 111/75 10/24/21 17:00 10/24/21 20:24 10/24/21 20:24 Laboratory Results WBC 8.00 10^3/uL (4.4-10.8) 10/24/21 14:40 RBC 3.97 10^6/uL (3.93-5.22) 10/24/21 14:40 Hgb 10.0 g/dL (11.2-15.7) L 10/24/21 14:40 Hct 29.4 % (36.0-46.0) L 10/24/21 14:40 MCV 74 fL (80-95) L 10/24/21 14:40 MCH 25.2 pg (27.0-33.0) L 10/24/21 14:40 MCHC 34.0 % (32.0-36.0) 10/24/21 14:40 RDW 13.1 % (11.7-14.6) 10/24/21 14:40 Plt Count 128 10^3/uL (130-400) L 10/24/21 14:40 MPV fL (8.0-11.0) 10/24/21 14:40 COVID-19 Source Nasal/Nares 10/24/21 15:35 SARS-CoV-2 (PCR) Negative (Negative) 10/24/21 15:35 Patient ABO/Rh A Positive 10/24/21 14:40 Antibody Screen NEGATIVE 10/24/21 14:40 Results Hemoglobin/Hematocrit: Hgb 10.0 g/dL (11.2-15.7) L 10/24/21 14:40 Hct 29.4 % (36.0-46.0) L 10/24/21 14:40 Abnormal Lab Findings: Abnormal Labs 10/24/21 14:40 Hgb 10.0 L Hct 29.4 L MCV 74 L MCH 25.2 L Plt Count 128 L
--- NOTE | 2021-10-24 20:55 | W.OBDELIVERY ---
Date of service: 10/24/21 Time of Service: 20:56 OB Labor/ Delivery Information Baby A Delivery Delivery Method: Spontaneaous Presentation: Vertex Amniotic Fluid: Clear Estimated Blood Loss: 250 Delivery Outcome: Liveborn Complications: none Infant Transferred: Remains with Mother Note: FHTs 140 during first stage of labor. FHTs 130 in second stage. Celia used the tub for comfort. She rogressed to full dilation and began bearing down in the tub. Second stage huddle was done. Spontaneous delivery of male delivered in ELVIS position. Baby was placed on mother's abdomen and had a spontaneous cry. Cord was clamped and cut by the baby's father Jose Angel. The placenta delivered spontaneously in the tub and appears to be intact with a three vessel cord. Celia was transferred to the bed and Pitocin 10 units was administered. The perineum was inspected and was intact. The baby did breastfeed. After delivery, Mother and baby and father of the baby were stable and bonding well in the delivery room and there were no complications. Providers Nurse Science Education Professor: Maite Barba Nurse: Corie Mcmahon Nurse: Kolby Keys Labor/Delivery Information Number of Babies in Womb: 1 Steroids Given: None Shoulder Dystocia: No Stages of Labor Onset of Labor Date: 10/24/21 Onset of Labor Time: 02:00 Complete Dilatation Date: 10/24/21 Labor - Stage 1 Duration: 0 minutes ROM Baby A: 10/24/21 ROM Baby A: 17:50 Delivery Date-Baby A: 10/24/21 Delivery Time-Baby A: 19:55 Placenta Delivery Date-Baby A: 10/24/21 Placenta Delivery Time-Baby A: 20:02 Labor-Stage 3 Duration: 7 minutes Total Length of Labor-Baby A: 17 hours and 55 minutes Placenta Status: Delivered Baby A Infant Gender: Male Gestational Status: Early Term (37-38.6 wks) Gestational Age in Weeks/Days: 37 Weeks and 1 Days Score-1 Minute Interval(Baby A) Heart Rate-1 minute: 100 BPM or Greater Respiratory Effort- 1 minute: Spontaneous/Strong Cry Muscle Tone-1 minute: Active Movement Reflex Response-1 minute: Prompt Response Color-1 minute: Bluish Hands or Feet Total Score-1 minute: 9 Score-5 Minute Interval(Baby A) Heart Rate- 5 minute: 100 BPM or Greater Respiratory Effort-5 minute: Spontaneous/Strong Cry Muscle Tone-5 minute: Active Movement Reflex Response-5 minute: Prompt Response Color-5 minute: Bluish Hands or Feet Total Score- 5 minute: 9
[2021-10-24] MEDS: Acetaminophen 325 MG TAB 650 MG PO (21:21)
[2021-10-24] MEDS: Ibuprofen 600 MG TAB PO (21:21)
[2021-10-25 00:08] VITALS: BP 110/61; PULSE 87; RESP 18; TEMP 36.6
[2021-10-25] MEDS: Acetaminophen 325 MG TAB 650 MG PO ×3 (06:50→15:27)
[2021-10-25 07:45] VITALS: BP 112/58; PULSE 80; RESP 12; TEMP 36.7
[2021-10-25] MEDS: Ibuprofen 600 MG TAB PO ×2 (11:11→17:10)
--- NOTE | 2021-10-25 11:49 | W.PM.OBPNV1 ---
Date of service: 10/25/21 Time of Service: 11:49 Assessment and Plan Assessment and plan (1) Term of male : Status: Acute Assessment and plan: Caring for baby independently. Pain is managed well with oral analgesics. Voiding without difficulty. slowly and receiving assistance. A - stable mother and baby , Post day 1 P - Discharge to home tomorrow pending infant's condition . Routine post instructions. [facility] Subjective Subjective Patient comments: No complaints Patient's Mood: good baby status: Other (sleepy, gagging on mucus, occasionally latching at the breast) [place] feeding status: Exclusively breast feeding (small formula supplement given by mother last night) Exam Physical Exam Vital signs: Temp Pulse Resp BP 98.1 F 80 12 112/58 L 10/25/21 07:45 10/25/21 07:45 10/25/21 07:45 10/25/21 07:45 Respiratory Exam Respiratory Exam: Normal Cardiovascular Exam Cardiovascular Exam: Normal Fundal Exam Fundus: Below Umbilicus and Firm Rectal Exam Rectal Exam: Normal Extremities Exam Extremity Exam: Normal Skin Exam Skin Exam: Normal Psychiatric Exam Psychiatric Exam: Normal Results Hemoglobin/Hematocrit: Hgb 10.0 g/dL (11.2-15.7) L 10/24/21 14:40 Hct 29.4 % (36.0-46.0) L 10/24/21 14:40 Abnormal Lab Findings: Abnormal Labs 10/24/21 14:40 Hgb 10.0 L Hct 29.4 L MCV 74 L MCH 25.2 L Plt Count 128 L
[2021-10-25 15:23] VITALS: BP 114/78; PULSE 83; RESP 17; TEMP 36.7; O2SAT 99
[2021-10-26] MEDS: Ibuprofen 600 MG TAB PO (04:42)
[2021-10-26] MEDS: Acetaminophen 325 MG TAB 650 MG PO (04:42)
[2021-10-26 04:50] VITALS: RESP 18
--- NOTE | 2021-10-26 08:22 | W.PM.OBPNV1 ---
Date of service: 10/26/21 Time of Service: : Assessment and Plan Assessment and plan (1) Term of male : Status: Acute Assessment and plan: A: PPD#2, nml recovery Pleased with experience well, pt choosing to supplement w/formula Normotensive now and throughout third trimester without medication Hgb @ 10 upon admission, pt remains asymptomatic P: Plan for discharge to home today Continue support as needed and desired Nwbn circumcision prior to discharge F/up at 2 & 6 wks Desires BTL @ 8 wks Written instructions reviewed and given to pt (2) Anemia affecting fifth : Status: Acute Assessment and plan: Resume iron supplement after first bowel movement Will monitor Hgb @ appt's Subjective Subjective Patient comments: No complaints, Pain well controlled, Tolerating diet and Flatus present baby status: Doing well, Nursing well, Supplemental feeding going well, Rooming in and Strong Bonding Observed feeding status: Breast and formula feeding Narrative: Experienced mom, handles confidently and competently. FOB in room effectively supportive. Exam Physical Exam Vital signs: Temp Pulse Resp BP Pulse Ox 98.0 F 83 18 114/78 99 10/25/21 15:23 10/25/21 15:23 10/26/21 04:50 10/25/21 15:23 10/25/21 15:23 Vital Signs Reviewed: Yes Constitutional Constitutional: no acute distress and obese HEENT Exam HEENT Exam: Normal Neck Exam Neck Exam: Normal Breast Exam Bilateral: Breast Exam: Normal and Soft Nipple Exam: Normal and Uninjured Respiratory Exam Respiratory Exam: Normal Cardiovascular Exam Cardiovascular Exam: Normal Abdominal Exam Abdomen: Other (soft , nontender) Fundal Exam Fundus: Below Umbilicus and Firm Rectal Exam Rectal Exam: Not Done Exam Perineum: Intact and Normal Extremities Exam Extremity Exam: Normal, Full ROM and Warm to Touch Back/Spine/Pelvis Exam Back Exam: Normal Skin Exam Skin Exam: Normal Neurological Exam Neurological Exam: Normal Psychiatric Exam Psychiatric Exam: Normal Results Hemoglobin/Hematocrit: Hgb 10.0 g/dL (11.2-15.7) L 10/24/21 14:40 Hct 29.4 % (36.0-46.0) L 10/24/21 14:40 Abnormal Lab Findings: Abnormal Labs 10/24/21 14:40 Hgb 10.0 L Hct 29.4 L MCV 74 L MCH 25.2 L Plt Count 128 L
--- NOTE | 2021-10-26 08:38 | DSE_ITS ---
Date of service: 10/26/21 Time of Service: 08:38 DS: Diagnosis Discharge Diagnosis (1) Term of male : Status: Acute (2) Anemia affecting fifth : Status: Acute Discharge Plan Disposition Patient Disposition: HOME Condition: Good Discharge Details Reason For Visit: Labor Admit Date/Time: 10/24/21 14:23 Admit Provider: Maite Barba Attending Provider: Maite Barba Primary Care Provider: Rocio Camarillo Hospital Course Hospital Course: , nml course, normotensive without medication. Home Meds and New Rx's Prescriptions: No Action PrePlus 27 mg iron- 1 mg tablet 1 tab PO DAILY Qty: 90 4RF ferrous sulfate 324 mg (65 mg iron) tablet,delayed release (DR/EC) 324 mg PO DAILY Qty: 90 0RF Discharge Instructions Additional Instructions: Please keep your 2 and 6 week appointments with the seam rubber. If you are feeling well and infant feeding is going well, your 2 week appt can be via telehealth if you prefer, just call the office to let us know. We will plan on scheduling your pre-op appt with an MD in preparation for tubal ligation after the 2 week appt. Make sure you take your iron supplement every day with a vitamin C containing food or drink. Call any time for questions or concerns. Stand Alone Forms: BC Instructions, BC Post Vaginal Deliver Activity:: Activity as Tolerated Equipment/Supplies:: No Equipment Needed Diet:: Normal Diet Discharge Orders Discharge Orders: Discharge Order (Routine); Ordered 10/26/21 Ordered By: Michelle Lucero OB:DS Summary Summary Vaginal Delivery Method: Spontaneaous Episiotomy Description: None Laceration Description: None Laceration Extension: N/A Contraception Discussed Contraception Discussed: Yes Contraceptive Plan: Tubal Ligation, [place] Gender-Baby A: Male weight: 6 lb 9.469 oz Status at Discharge Functional status at discharge: independent ambulation Overall status at discharge: patient is progressing back to baseline Mental Status: mental status grossly normal Speech and Movement: speech and movement normal and speech clear Mood: congruent mood Affect: normal affect Exam Physical Exam Vital signs: Temp Pulse Resp BP Pulse Ox 98.0 F 83 18 114/78 99 10/25/21 15:23 10/25/21 15:23 10/26/21 04:50 10/25/21 15:23 10/25/21 15:23 Vital Signs Reviewed: Yes Constitutional Constitutional: no acute distress and obese HEENT Exam HEENT Exam: Normal Neck Exam Neck Exam: Normal Breast Exam Bilateral: Breast Exam: Normal and Soft Respiratory Exam Respiratory Exam: Normal Cardiovascular Exam Cardiovascular Exam: Normal Abdominal Exam Abdomen: Other (soft , nontender) Fundal Exam Fundus: Below Umbilicus and Firm Rectal Exam Rectal Exam: Not Done Exam Perineum: Intact and Normal Extremities Exam Extremity Exam: Normal, Full ROM and Warm to Touch Back/Spine/Pelvis Exam Back Exam: Normal Skin Exam Skin Exam: Normal Neurological Exam Neurological Exam: Normal Psychiatric Exam Psychiatric Exam: Normal PFSH All Active Problems (Updated 10/26/21 @ 07:47 by Michelle Lucero) Term of male (Acute) Anemia affecting fifth (Acute) PAC (premature atrial contraction) (Acute) Migraine with aura (Acute) Prediabetes (Acute) HTN (hypertension) (Chronic) Medical History (Updated 10/26/21 @ 07:47 by Michelle Lucero) [facility] BMI 34.0-34.9,adult History of 2019 novel coronavirus disease (COVID-19) COVID+ on 06/07/21 Screen for STD (sexually transmitted disease) Sickle cell trait Size of fetus inconsistent with dates in second trimester Family History Mother Sickle cell trait Essential hypertension Mental disorder Depression Depression Father Sickle cell trait Alcohol abuse Sister Asthma Sister Depression Brother Sickle cell trait Grandmother Essential hypertension Mental disorder Depression Asthma Brother Sickle cell disease Social History Smoking/Tobacco Use Status: Former Tobacco Use Second Hand Exposure: Yes Smoking risk assessment performed?: Yes Alcohol Intake: current Counseling given: No Counseling provided: reduce to 2 or less/day Drug use: Never Substance use type: does not use Counseling given: No Household members: spouse and children Housing: apartment Do you need help understanding health information?: Rarely Pets and animals: No Sexually active: Yes Do you think of yourself as: bisexual Current gender identity: female What is your relationship status?: living with partner How often do you talk on the phone with friends or family?: once per week How often do you get together with friends or relatives?: once per week How often do you attend advent or taoism services?: decline to answer Do you belong to any clubs or organized social groups?: no Panel score (0-1 are the most socially isolated patients): 1 What type of physical activity do you participate in: walking and bicycling Duration: 30-45 minutes/day Frequency: 3-4 times per week Katerine/Gnosticist: Quaker Seatbelt use: sometimes Helmet use: No Drive intox or ride w/intox truck driver's offsider: No Do you feel safe at home: Yes Do you feel safe in your relationship?: Yes Female Reproductive History Menstrual control method: pills History History 5 Para 4 Hx # Term Pregnancies 4 Multiple births 0 Hx # Pregnancies 0 Ectopic pregnancies 0 AB induced 0 Hx Number of Living Children 4 AB spontaneous 0 Past Pregnancies Del. Date GA/Weeks # Outcome Route Wgt Sex Labor Lgth Anesthes ia Location Prov [facility] 11/15/06 39 No Successful vaginal 6 lb 3 oz Female Was age 16 at delivery, 6hr spont labor with 4 hrs of pushing, had epidural [facility] 11/17/09 40 No Successful vaginal 7 lb 3 oz Female 4-5 hr spont labo r [facility] 05/12/12 39 No Successful vaginal 7 lb 2 oz Female 4 hrs, spont labo r [facility] 03/09/18 38 No Successful vaginal 6 lb 12 oz Male 1 hr. 41 min. [facility] - [facility] Delivery Date: 11/15/06 Last Updated by: Kaye Lucero teen . [place] Delivery Date: 11/17/09 Last Updated by: Kaye Lucero uncomplicated . [place] Delivery Date: 05/12/12 Last Updated by: Kaye Lucero uncomplicated . [place] Delivery Date: 03/09/18 Last Updated by: Kaye Lucero uncomplicated waterbirth, developed HTN at 6 wks , been on anti- HTN med ever since. Jose Angel PINO: Data Vitals/I&O Vitals and I&O: Vital Signs Temperature 98.0 F 10/25/21 15:23 Pulse 83 10/25/21 15:23 Pulse Rhythm Regular 10/26/21 00:42 Respiratory Rate 18 10/26/21 04:50 Respiratory Depth Normal 10/25/21 15:20 Blood Pressure 114/78 10/25/21 15:23 Blood Pressure Mean 90 10/25/21 15:23 Pulse Oximetry 99 10/25/21 15:23 Oxygen Delivery Method Room Air 10/24/21 15:21 Oxygen Flow Rate 0 10/24/21 15:21 Pain Level 2 10/25/21 15:23 Intake & Output 10/25/21 10/25/21 10/26/21 11:59 23:59 11:59 Output Total 550 / 550 Balance -550 / -550 Output: Urine 550 / 550
[2021-10-26 09:00] VITALS: BP 110/74; PULSE 78; RESP 21; TEMP 36.8
== END 2021-10-26 13:10 | disposition home or self-care (01) | DRG 805 ==
LOC: OBS 10-25 08:22 → BCD 10-25 09:04
PROVIDERS: Admitting Provider Advanced Practice Midwife; PCP Nurse Practitioner; Visit Provider Advanced Practice Midwife
DX: O99.02 Anemia complicating childbirth (principal); O99.42 Diseases of the circulatory system complicating childbirth; Z37.0 Single live birth; O10.02 Pre-existing essential hypertension complicating childbirth; O99.354 Diseases of the nervous system complicating childbirth; Z3A.37 37 weeks gestation of pregnancy; O99.892 Other specified diseases and conditions complicating childbirth; R73.03 Prediabetes; I49.1 Atrial premature depolarization; G43.109 Migraine with aura, not intractable, without status migrainosus
CPT/HCPCS: 85027; 86850; 86900; 86901; 87635; 59025; J3490

== ENCOUNTER 2021-11-07 14:57 | Outpatient (REF) | payer MEDICAID, SELFPAY ==
[2021-11-08 14:49] LABS: Chlamydia Result Negative (Negative); GC Result Negative (Negative)
== END 2021-11-07 14:58 | disposition home or self-care (01) ==
LOC: LBN 14:57
PROVIDERS: PCP Nurse Practitioner; Visit Provider Advanced Practice Midwife
DX: Z11.3 Encounter for screening for infections with a predominantly sexual mode of transmission (principal)
CPT/HCPCS: 87491; 87591

== ENCOUNTER 2021-12-05 01:16 | Outpatient (CLI) | payer MEDICAID, SELFPAY | END 2021-12-05 01:17 | disposition home or self-care (01) | LOC: LBO 01:16 | PROVIDERS: PCP Nurse Practitioner; Visit Provider Advanced Practice Midwife ==

== ENCOUNTER 2021-12-24 18:25 | Outpatient (REF) | payer MEDICAID, SELFPAY ==
[2021-12-25 13:40] LABS: Chlamydia Result Negative (Negative); GC Result Negative (Negative)
== END 2021-12-24 18:26 | disposition home or self-care (01) ==
LOC: LBN 18:25
PROVIDERS: PCP Nurse Practitioner; Visit Provider Advanced Practice Midwife
DX: Z11.3 Encounter for screening for infections with a predominantly sexual mode of transmission (principal)
CPT/HCPCS: 87491; 87591

== ENCOUNTER 2022-02-04 16:03 | Outpatient (REF) | payer MEDICAID, SELFPAY ==
[2022-02-06 12:55] LABS: Chlamydia Result Negative (Negative); GC Result Negative (Negative)
== END 2022-02-04 16:04 | disposition home or self-care (01) ==
LOC: LBN 16:03
PROVIDERS: PCP Nurse Practitioner; Visit Provider Advanced Practice Midwife
DX: Z11.3 Encounter for screening for infections with a predominantly sexual mode of transmission (principal); Z30.430 Encounter for insertion of intrauterine contraceptive device
CPT/HCPCS: 87491; 87591

== ENCOUNTER 2022-08-15 08:26 | Outpatient (CLI) | payer MEDICAID, SELFPAY ==
--- NOTE | 2022-08-15 08:15 | RT.EKG_ITS ---
APPROVED REPORT Exam: Resting ECG Reason for Exam: pre-op Patient Location: O HR:77 bpm ECG Measurements Heart Rate 77 AXIS VT 165 P 47 QRSd 76 QRS 55 QT 374 T 27 QTc 424 Conclusion Sinus rhythm...normal P axis, V-rate 50- 99 Probable left atrial enlargement...P >50mS, <-0.10mV V1 Otherwise normal ECG
== END 2022-08-15 08:27 | disposition home or self-care (01) ==
LOC: DI.CM 08:27
PROVIDERS: PCP Nurse Practitioner Family; Visit Provider Nurse Practitioner Family
DX: Z01.818 Encounter for other preprocedural examination (principal)
CPT/HCPCS: 93010

== ENCOUNTER 2022-08-15 11:36 | Outpatient (CLI) | payer MEDICAID, SELFPAY ==
--- NOTE | 2022-08-15 10:00 | DI.RAD_ITS ---
Exam(s) XR CHEST 2V PA LATERAL EXAM: XR CHEST 2V PA LATERAL CLINICAL HISTORY: preop x-ray, Z01.818 TECHNIQUE: 2D digital imaging was performed. COMPARISON: CR,XR XR CHEST 1V IN DI DEPT from 04/27/2021 FINDINGS: HEART: Normal size. Aorta: Not dilated. PULMONARY VASCULATURE: Normal. LUNGS: Clear. PLEURAL SPACE: No pleural effusion or pneumothorax. BONE:Unremarkable for age. IMPRESSION: No acute abnormality. DATA REPOSITORY: RADIATION DOSE DELIVERED:
== END 2022-08-15 11:56 ==
LOC: DI 11:37
PROVIDERS: PCP Nurse Practitioner Family; Visit Provider Nurse Practitioner Family
DX: I10 Essential (primary) hypertension (principal); Z01.818 Encounter for other preprocedural examination
CPT/HCPCS: 71046

== ENCOUNTER 2022-08-18 03:39 | Outpatient (CLI) | payer MEDICAID, SELFPAY ==
[2022-08-18 12:20] LABS: Abs Immature Grans 0.01 10^3/uL (0.0-0.06); Absolute Basophil Count 0.03 10^3/uL (0.0-0.2); Absolute Eosinophil Count 0.05 10^3/uL (0.0-0.7); Absolute Lymphocyte Count 2.44 10^3/uL (1.2-3.4); Absolute Monocyte Count 0.56 10^3/uL (0.1-0.8); Basophils % 0.4; Eosinophils % 0.7; HCT 34.3 % (36.0-46.0); HGB 11.9 g/dL (11.2-15.7); Immature Grans % 0.1; Lymphocytes % 34.9; MCH 25.5 pg (27.0-33.0); MCHC 34.7 % (32.0-36.0); MCV 74 fL (80-95); MPV 11.2 fL (8.0-11.0); Neutrophils % 55.9; Platelet Count 283 10^3/uL (130-400); RBC 4.66 10^6/uL (3.93-5.22); RDW 13.4 % (11.7-14.6); RDW-SD 35.8 fL; WBC 6.99 10^3/uL (4.4-10.8)
[2022-08-18 12:22] LABS: Bilirubin Negative (Negative); Blood Negative (Negative); Clarity Clear (Clear); Glucose Negative (Negative); Ketones Negative (Negative); Leukocyte Esterase Negative (Negative); Nitrite Negative (Negative); Specific Gravity >= 1.030 (1.005-1.025); Urobilinogen 0.2 mg/dL (Up to 0.2); pH 6.5 (5-8)
[2022-08-18 12:34] LABS: HCG Qual (Serum) Negative
[2022-08-18 12:36] LABS: PTT Activated 27.4 sec (21.5-31.9); Prothrombin Time 9.9 sec (9.3-11.0)
[2022-08-18 12:37] LABS: Hemoglobin A1C 5.4 % (<5.7)
[2022-08-18 12:38] LABS: Total Iron Binding Capacity 311 ug/dL (250-450)
[2022-08-18 12:39] LABS: Diff Comment RBC Morph Reviewed; Microcytosis 1+
[2022-08-18 12:44] LABS: ALT 23 U/L (14-59); AST 14 U/L (15-37); Albumin 4.3 g/dL (3.4-5.0); Alkaline Phosphatase 56 U/L (46-116); Anion Gap 10.7 mmol/L (3-11); BUN 13 mg/dL (7-18); Bilirubin, Total 0.3 mg/dL (0.2-1.0); CO2 28.3 mmol/L (21.0-32.0); CREATININE 0.7 mg/dL (0.55-1.02); Calculated LDL 69 mg/dL (<100); Chloride 103 mmol/L (98-107); Cholesterol 127 mg/dL (<200); Estimated GFR 119.24 (mL/min/1.73m2); Ferritin 13 ng/mL (8-252); Glucose 82 mg/dL (74-106); HDL Cholesterol 51 mg/dL (40-60); Potassium 3.6 mmol/L (3.5-5.1); Sodium 142 mmol/L (136-145); TSH (W/Ref FT4) 1.12 uIU/mL (0.36-3.74); Total Protein 7.9 g/dL (6.4-8.2); Triglyceride 38 mg/dL (<150)
[2022-08-19 10:01] LABS: Hepatitis C Ab w Rflx HCV PCR Negative (Negative)
[2022-08-19 10:40] LABS: HIV-1/2 Ag & Ab Screen Negative (Negative)
== END 2022-08-18 03:40 | disposition home or self-care (01) ==
PROVIDERS: PCP Nurse Practitioner Family; Visit Provider Nurse Practitioner Family
DX: D50.9 Iron deficiency anemia, unspecified (principal); I10 Essential (primary) hypertension; R73.03 Prediabetes; Z11.4 Encounter for screening for human immunodeficiency virus [HIV]; Z11.59 Encounter for screening for other viral diseases; Z01.818 Encounter for other preprocedural examination; Z01.812 Encounter for preprocedural laboratory examination
CPT/HCPCS: 36415; 80053; 80061; 86803; 87389; 81003; 82728; 83036; 83550; 84443; 84703; 85025; 85610; 85730

== ENCOUNTER 2022-10-07 19:03 | Emergency (ER) | payer MEDICAID, SELFPAY ==
[2022-10-07 19:10] VITALS: PULSE 92; RESP 18; TEMP 37.4; O2SAT 100
[2022-10-07 19:13] VITALS: BP 132/108
--- NOTE | 2022-10-07 19:43 | W.ED.GENAD ---
Discharge Plan Disposition Patient Disposition: Home Discharge Details Clinical Impression: Cellulitis of buttock, right Primary Care Provider: Kayleen Carrillo ED Provider: Sheyla Marrero Home Meds and New Rx's Prescriptions: Continued Mirena 20 mcg/24 hours (7 yrs) 52 mg intrauterine device 1 device intrauterine ONCE Rx Instructions: as a single dose amlodipine 10 mg tablet 10 mg PO DAILY Qty: 90 4RF Hold Instructions: Wants to try and manage HTN with diet and exercise ferrous sulfate 324 mg (65 mg iron) tablet,delayed release (DR/EC) 324 mg PO DAILY Qty: 90 3RF Patient Comments: not taking Discharge Instructions Instructions: Cellulitis (ED) Additional Instructions: Continue taking the antibiotics twice daily for the next 3 to 5 days. Apply a warm compresses to the area. Return to the ER for any worsening erythema or redness, fever or chills. Follow up with primary care provider in 3-5 days. Return to ED sooner if any worsening or concerns. Increase oral fluids. Please take Tylenol or Ibuprofen with food every 4-6 hours as needed for pain and swelling. Referrals: Kayleen Carrillo, [facility] [employer] [Primary Care Provider] - 3 days Medical Decision Making 32-year-old female presents to the ER with chief complaint of possible right buttock abscess. Patient had some fat injections in [place] in August. She reports proximately 3 days ago she noticed an area of fluctuance, tenderness and warmth to her right lateral buttock. She reports some chills. She is on her second day of cephalexin prescription. Past medical history include hypertension, prediabetes migraine. Bedside ultrasound to gauge if there is fluid pocket. No significant collection of fluid seen. I did discuss options with patient including warm compresses and watchful waiting. She agrees to have needle aspiration of the area to see if there is any fluid in there. Attempted I&D with needle aspiration, no fluid was aspirated, I do suspect cellulitis. Instructed patient to continue with the antibiotics for the next 3 to 5 days at least and to return if any worsening. She verbalizes understanding. HPI General Mode of arrival: ambulatory. Date/Time Provider Initiated Documentation: 10/07/22 19:14. Limitations to Documentation: no limitations. Information obtained by: patient, RN notes reviewed and old records reviewed. HPI Narrative: 32-year-old female presents to the ER with chief complaint of possible right buttock abscess. Patient had some fat injections in [place] in August. She reports proximately 3 days ago she noticed an area of fluctuance, tenderness and warmth to her right lateral buttock. She reports some chills. She is on her second day of cephalexin prescription. Past medical history include hypertension, prediabetes migraine. Related Data Home Medications Medication Instructions Recorded Confirmed amlodipine 10 mg tablet 10 mg PO DAILY #90 tabs 01/08/22 10/07/22 levonorgestrel 21 mcg/24 hours (8 1 device intrauterine ONCE 02/04/22 10/07/22 yrs) 52 mg intrauterine device (Mirena) ferrous sulfate 324 mg (65 mg 324 mg PO DAILY #90 tabs 08/19/22 iron) tablet,delayed release Previous Rx's Medication Instructions Recorded amlodipine 10 mg tablet 10 mg PO DAILY #90 tabs 01/08/22 ferrous sulfate 324 mg (65 mg 324 mg PO DAILY #90 tabs 08/19/22 iron) tablet,delayed release Allergies Allergy/AdvReac Type Severity Reaction Status Date / Time lactase [From Lactaid] AdvReac Mild Verified 10/07/22 19:13 Estrogens AdvReac Unknown MIGRAINE Verified 10/07/22 19:13 WITH AURA General Stated Complaint: GenMedical POORNIMA: 3 Review of Systems Integumentary/Breasts Skin/Breast: Reports as per HPI, Reports furuncle, Reports skin pain and Reports skin swelling PFSH All Active Problems (Updated 10/07/22 @ 20:39 by Sheyla Marrero NP) Cellulitis of buttock, right (Acute) Iron deficiency anemia (Chronic) Hypertension (Chronic) Prediabetes (Chronic) Hemoglobin C trait (Chronic) Stress incontinence in female (Chronic) Migraine with aura (Chronic) IUD surveillance (Chronic) Mirena IUD inserted 01/2022 Medical History [facility] virus infection (~05/2021) Surgical History H/O colposcopy with cervical biopsy Family History Mother Sickle cell trait Essential hypertension Depression Father Sickle cell trait Alcohol abuse Prostate cancer Sister No problems noted. Sister Depression Bipolar disorder Brother Sickle cell disease Brother Sickle cell disease Son No problems noted. Son No problems noted. Daughter No problems noted. Daughter No problems noted. Daughter No problems noted. Maternal Grandfather No problems noted. Maternal Grandmother No problems noted. Paternal Grandfather No problems noted. Paternal Grandmother No problems noted. Social History Smoking/Tobacco Use Status: Current every day Tobacco Type: e-cigarettes Tobacco: How many years used: 5 Second Hand Exposure: Yes Counseling given: provider counseling Smoking risk assessment performed?: Yes Alcohol Intake: current Alcohol Intake frequency: a few times a month Alcohol type: wine Counseling given: No Counseling provided: reduce to 2 or less/day Drug use: Never Substance use type: does not use Counseling given: No Household members: spouse and children Housing: apartment Communication Needs: None Do you need help understanding health information?: Rarely Pets and animals: Yes Pets and animals: cat(s) Sexually active: Yes Do you think of yourself as: straight/heterosexual Current gender identity: female What is your relationship status?: never How often do you talk on the phone with friends or family?: three or more times per week How often do you get together with friends or relatives?: three or more times per week How often do you attend yarsani or buddhist services?: 4 or more times per year Do you belong to any clubs or organized social groups?: no Panel score (0-1 are the most socially isolated patients): 2 What type of physical activity do you participate in: walking and bicycling Duration: 15-30 minutes/day Frequency: 1-2 times per week Katerine/Buddhism: Judaism Seatbelt use: sometimes Helmet use: No Drive intox or ride w/intox deliver driver: No Do you feel safe at home: Yes Do you feel safe in your relationship?: Yes Female Reproductive History Menstrual control method: progestin IUCD History History 5 Para 5 Hx # Term Pregnancies 5 Multiple births 0 Hx # Pregnancies 0 Ectopic pregnancies 0 AB induced 0 Hx Number of Living Children 5 AB spontaneous 0 Past Pregnancies Del. Date GA/Weeks # Preg Succ Route Wgt Sex Labor Lgth Anesthesia Location [facility] 11/15/06 39 No vaginal 2806.603 g Female Was age 16 at delivery, 6hr spont labor with 4 hrs of pushing, had epidural regional [facility] 11/17/09 40 No vaginal 3260.195 g Female 4-5 hr spont labor regional [facility] 05/12/12 39 No vaginal 3231.846 g Female 4 hrs, spont labor regional [facility] 03/09/18 38 No vaginal 3061.748 g Male 1 hr. 41 min. [place] - Kay[facility] 10/24/21 37 No Yes vaginal 2976.7 g Male [facility] Delivery Date: 11/15/06 Last Updated by: Kaye Lucero teen . [facility] Delivery Date: 11/17/09 Last Updated by: Kaye Lucero uncomplicated . [place] Delivery Date: 05/12/12 Last Updated by: Kaye Lucero uncomplicated . [facility] Delivery Date: 03/09/18 Last Updated by: Kaye Lucero uncomplicated waterbirth, developed HTN at 6 wks , been on anti-HTN med ever since. Jose Angel Exam Back/Spine/Pelvis Back/spine/pelvis image: 1. Approximately 6 cm x 3 cm area of erythema, fluctuance and warmth that is tender to the touch. Course Vital Signs Vital signs: Vital Signs Temperature 37.4 C 10/07/22 19:10 Pulse 92 H 10/07/22 19:10 Respiratory Rate 18 10/07/22 19:10 Pulse Oximetry 100 10/07/22 19:10 Temperature 37.4 C 10/07/22 19:10 Temperature Source Oral 10/07/22 19:10 Pulse 92 H 10/07/22 19:10 Respiratory Rate 18 10/07/22 19:10 Respiratory Effort Normal, Non-Labored 10/07/22 19:13 Blood Pressure 132/108 H 10/07/22 19:13 Pulse Oximetry 100 10/07/22 19:10 Oxygen Delivery Method Room Air 10/07/22 19:10 Oxygen Flow Rate 0 10/07/22 19:10 Procedures Abscess I/D Site: Shala-rectal (Right Buttock) Side (if applicable): Right Local Anesthetic: Lidocaine 1% and With Epi Amount of anesthesia used (mL): 3 Technique: Needle Aspiration Amount of fluid expressed (mL): 1 Irrigation: No Packing used?: None Complications: Pain, Bleeding and Other (No purulent fluid expressed. )
[2022-10-07] MEDS: Lidocaine/Epinephri/Tetracaine Topical Gel 3 ML TP (19:58)
[2022-10-07 20:53] VITALS: BP 137/86; PULSE 101; RESP 18; TEMP 36.6; O2SAT 98
== END 2022-10-07 20:57 | disposition home or self-care (01) ==
PROVIDERS: Emergency Provider Registered Nurse Emergency; PCP Nurse Practitioner Family
DX: L03.317 Cellulitis of buttock (principal)
CPT/HCPCS: 10060

== ENCOUNTER 2023-05-13 12:13 | Outpatient (REF) | payer MEDICAID, SELFPAY ==
--- NOTE | 2023-05-13 10:15 | PAPFT_PTH ---
PATIENT: Celia Gordon LOC: [facility] U#:[id number] AGE/SX: 33/F ROOM: RE05/13/[address]: NATA Carranza : 1990 BED: DIS: 05/13/2023 SPEC #: [id number] RECD: 05/14/23 13:03 STATUS: VALERY REQ #: [id number] ZACH: 05/13/23 10:[address]: Kayleen Carrillo DEPT: [facility] Cytology RECD BY: Marylou Lima Tissues: 1 - CX/ENDOCX FOR PAP SMEARS Procedures: PAP THIN PREP/[facility] Screening HPV DNA PROBE Comments: [id number] (HPV 16 & 18/45) (CHLAMYDIA/GC)
[2023-05-15 18:11] LABS: Chlamydia Result Negative (Negative); GC Result Negative (Negative)
== END 2023-05-13 12:14 | disposition home or self-care (01) ==
LOC: LBN 12:13
PROVIDERS: PCP Nurse Practitioner Family; Visit Provider Nurse Practitioner Family
DX: N93.8 Other specified abnormal uterine and vaginal bleeding (principal); N89.8 Other specified noninflammatory disorders of vagina
CPT/HCPCS: 87491; 87591; 88142; 87480; 87510; 87624; 87660

== ENCOUNTER 2023-06-18 10:39 | Outpatient (CLI) | payer MEDICAID, SELFPAY ==
[2023-06-18 12:19] LABS: Abs Immature Grans 0.01 10^3/uL (0.0-0.06); Absolute Basophil Count 0.02 10^3/uL (0.0-0.2); Absolute Eosinophil Count 0.19 10^3/uL (0.0-0.7); Absolute Lymphocyte Count 2.57 10^3/uL (1.2-3.4); Absolute Monocyte Count 0.43 10^3/uL (0.1-0.8); Absolute Neutrophil Count 3.24 10^3/uL (1.2-6.7); Basophils % 0.3; Eosinophils % 2.9; HCT 34.4 % (36.0-46.0); HGB 11.8 g/dL (11.2-15.7); Immature Grans % 0.2; Lymphocytes % 39.8; MCH 25.7 pg (27.0-33.0); MCHC 34.3 % (32.0-36.0); Monocytes % 6.7; Neutrophils % 50.1; Platelet Count 247 10^3/uL (130-400); RDW 12.7 % (11.7-14.6); RDW-SD 34.3 fL; WBC 6.46 10^3/uL (4.4-10.8)
[2023-06-18 12:23] LABS: MCV 75 fL (80-95)
[2023-06-18 12:43] LABS: ALT 67 U/L (14-59); AST 33 U/L (15-37); Alkaline Phosphatase 40 U/L (46-116); Anion Gap 8.3 mmol/L (3-11); BUN 5 mg/dL (7-18); Bilirubin, Total 0.4 mg/dL (0.2-1.0); CO2 28.7 mmol/L (21.0-32.0); CREATININE 0.7 mg/dL (0.55-1.02); Calcium 9.1 mg/dL (8.5-10.1); Chloride 104 mmol/L (98-107); Estimated GFR 118.51 (mL/min/1.73m2); Ferritin 44 ng/mL (8-252); Glucose 71 mg/dL (74-106); Potassium 3.4 mmol/L (3.5-5.1); Sodium 141 mmol/L (136-145); Total Protein 7.5 g/dL (6.4-8.2)
== END 2023-06-18 10:40 | disposition home or self-care (01) ==
LOC: LOS 10:39
PROVIDERS: PCP Nurse Practitioner Family; Referring Provider Nurse Practitioner Family; Visit Provider Nurse Practitioner Family
DX: D50.9 Iron deficiency anemia, unspecified (principal); I10 Essential (primary) hypertension
CPT/HCPCS: 36415; 80053; 82728; 85025

== ENCOUNTER 2024-02-10 09:28 | Outpatient (CLI) | payer SELFPAY ==
[2024-02-10 20:03] LABS: HBs Antibody, Quant 44.6 mIU/mL (See Note); Hepatitis B Surface Ab Positive (See Note)
[2024-02-11 11:00] LABS: Varicella IgG Antibody Positive (See Note)
[2024-02-11 11:04] LABS: Measles IgG Antibody Positive (See Note); Mumps Antibody IgG Positive (See Note); Rubella IgG Ab (UVM) Positive (See Note)
[2024-02-12 11:29] LABS: TB Interpretation Negative (Negative)
== END 2024-02-10 09:29 | disposition home or self-care (01) ==
LOC: LBO 09:29
PROVIDERS: PCP Nurse Practitioner Family; Visit Provider Nurse Practitioner Family
DX: Z02.1 Encounter for pre-employment examination (principal)
CPT/HCPCS: 36415; 86706; 86787; 86480; 86735; 86762; 86765

== ENCOUNTER 2024-08-11 12:40 | Outpatient (REF) | payer SELFPAY ==
--- NOTE | 2024-08-11 10:15 | PAPFT_PTH ---
PATIENT: Celia Gordon LOC: [facility] U#:[id number] AGE/SX: 34/F ROOM: RE08/11/[address]: NATA Carranza : 1990 BED: DIS: 08/11/2024 SPEC #: [id number] RECD: 08/11/24 13:05 STATUS: VALERY REQ #: [id number] ZACH: 08/11/24 10:[address]: Kayleen Carrillo DEPT: [facility] Cytology RECD BY: Marylou Lima Tissues: 1 - CX/ENDOCX FOR PAP SMEARS Procedures: PAP THIN PREP/UVM Screening HPV DNA PROBE Comments: [id number] (HPV 16 & 18/45) (CHLAMYDIA/GC)
[2024-08-12 12:24] LABS: Chlamydia Result Negative (Negative); GC Result Negative (Negative)
== END 2024-08-11 12:41 | disposition home or self-care (01) ==
LOC: LBN 12:40
PROVIDERS: PCP Nurse Practitioner Family; Visit Provider Nurse Practitioner Family
DX: N94.10 Unspecified dyspareunia (principal); C44.92 Squamous cell carcinoma of skin, unspecified
CPT/HCPCS: 87491; 87591; 88142; 87480; 87510; 87624; 87660

== ENCOUNTER 2025-05-02 13:13 | Observation (INO) | payer SELFPAY ==
[2025-05-02] VITALS (9 sets, daily range): BP systolic 129–206; BP diastolic 75–132; PULSE 76–88; RESP 16–20; TEMP 36.8–37.1; O2SAT 96–100
--- NOTE | 2025-05-02 13:45 | DI.US_ITS ---
Exam(s) US ABDOMEN LIMITED EXAM: US ABDOMEN LIMITED CLINICAL HISTORY: RUQ pain TECHNIQUE: Ultrasound of the right upper quadrant performed using standard protocol. COMPARISON: No exams were available for comparison FINDINGS: LIVER: Normal size. Normalechogenicity. No focal liver lesions are seen.. GALLBLADDER: Multiple mobile stones are noted within the gallbladder. No evidence of wall thickening. No pericholecystic fluid identified. CRAMER'S SIGN: Negative. BILIARY SYSTEM: Common bile duct is dilated for the patient's age, measuring 6.528.5 millimeters. No common duct stone is visible. No intrahepatic biliary ductal dilation. RIGHT KIDNEY: Normal size. No evidence of renal calculi. No evidence of hydronephrosis. No suspicious renal mass. No cyst identified. PANCREAS: Normal where visualized. ABDOMINAL AORTA AND IVC: Visualized portions normal caliber. ASCITES: None seen. IMPRESSION: Cholelithiasis. No gallbladder wall thickening. The common bile duct is mildly dilated. No common duct stones are visible. DATA REPOSITORY:
[2025-05-02] MEDS: Ondansetron 4 MG/2 ML VIAL IVP ×2 (14:16→20:19)
[2025-05-02] MEDS: MORPHine 10 MG/ML VIAL 6 MG IVP (14:17)
[2025-05-02] MEDS: Normal Saline 1,000 ML 1000 ML IV (14:21)
[2025-05-02 14:31] LABS: Abs Immature Grans 0.02 10^3/uL (0.0-0.06); HCT 36.2 % (36.0-46.0); HGB 12.5 g/dL (11.2-15.7); Immature Grans % 0.2 %; MCH 25.5 pg (27.0-33.0); MCHC 34.5 % (32.0-36.0); MCV 74 fL (80-95); MPV 11.6 fL (8.0-11.0); Platelet Count 247 10^3/uL (130-400); RBC 4.90 10^6/uL (3.93-5.22); RDW 12.2 % (11.7-14.6); RDW-SD 32.8 fL; WBC 8.59 10^3/uL (4.4-10.8)
[2025-05-02 15:10] LABS: Lipase 65 U/L (<53)
[2025-05-02 15:12] LABS: ALT 67 U/L (10-49); AST 72 U/L (<34); Albumin 4.7 g/dL (3.2-5.0); Alkaline Phosphatase 58 U/L (46-116); Anion Gap 8.1 mmol/L (3-11); BUN 11 mg/dL (9-23); Bilirubin, Total 0.4 mg/dL (0.2-1.2); CO2 29.9 mmol/L (20.0-31.0); Calcium 9.4 mg/dL (8.3-10.6); Chloride 102 mmol/L (98-107); Glucose 83 mg/dL (74-106); Potassium 4.0 mmol/L (3.5-5.1); Sodium 140 mmol/L (136-145); Total Protein 9.0 g/dL (5.7-8.2)
[2025-05-02 15:56] LABS: Glucose Negative (Negative)
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
[2025-05-02] MEDS: Ketorolac 15 MG/ML VIAL 7.5 MG IVP (17:35)
[2025-05-02] MEDS: hydrALAZINE 20 MG/ML VIAL 10 MG IVP (18:20)
[2025-05-02] MEDS: Normal Saline Flush 10 ML SYR (18:22)
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
[2025-05-02] MEDS: Normal Saline 1,000 ML 125 ML IV (20:18)
[2025-05-02] MEDS: Prochlorperazine 10 MG/2 ML VIAL 5 MG IVP (20:20)
[2025-05-03 00:31] VITALS: BP 126/79; PULSE 88; RESP 18; TEMP 36; O2SAT 97
[2025-05-03] MEDS: Ketorolac 15 MG/ML VIAL IVP (04:03)
[2025-05-03] MEDS: Normal Saline 1,000 ML 125 ML IV (04:03)
[2025-05-03] MEDS: Normal Saline Flush 10 ML SYR (04:05)
[2025-05-03 04:28] VITALS: BP 123/89; PULSE 82; RESP 18; TEMP 36.3; O2SAT 98
[2025-05-03 07:44] VITALS: BP 142/94; PULSE 87; RESP 18; TEMP 36.4; O2SAT 100
[2025-05-03] MEDS: hydroCHLOROthiazide 25 MG TAB PO (07:52)
[2025-05-03] MEDS: Losartan 25 MG TAB PO (07:52)
[2025-05-03 08:14] LABS: Abs Immature Grans 0.01 10^3/uL (0.0-0.06); HCT 32.5 % (36.0-46.0); HGB 11.2 g/dL (11.2-15.7); Immature Grans % 0.1 %; MCH 25.5 pg (27.0-33.0); MCHC 34.5 % (32.0-36.0); MCV 74 fL (80-95); MPV 11.7 fL (8.0-11.0); Platelet Count 236 10^3/uL (130-400); RBC 4.39 10^6/uL (3.93-5.22); RDW 12.3 % (11.7-14.6); RDW-SD 33.4 fL; WBC 7.17 10^3/uL (4.4-10.8)
[2025-05-03 08:40] LABS: Microcytosis 2+
[2025-05-03 08:59] LABS: Magnesium 1.8 mg/dL (1.6-2.6)
[2025-05-03 09:01] LABS: ALT 66 U/L (10-49); AST 49 U/L (<34); Albumin 4.1 g/dL (3.2-5.0); Alkaline Phosphatase 54 U/L (46-116); Anion Gap 6.9 mmol/L (3-11); BUN 8 mg/dL (9-23); Bilirubin, Total 0.6 mg/dL (0.2-1.2); CO2 28.1 mmol/L (20.0-31.0); Calcium 8.2 mg/dL (8.3-10.6); Chloride 106 mmol/L (98-107); Glucose 84 mg/dL (74-106); Potassium 3.6 mmol/L (3.5-5.1); Sodium 141 mmol/L (136-145); Total Protein 7.6 g/dL (5.7-8.2)
[2025-05-03 09:10] VITALS: BP 133/92; PULSE 83
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
[2025-05-03 11:08] VITALS: BP 134/95; PULSE 81; RESP 16; TEMP 36.4; O2SAT 100
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
== END 2025-05-03 12:49 | disposition home or self-care (01) ==
LOC: ER 17:02 → MS 20:44
PROVIDERS: Admitting Provider Family Medicine; Emergency Provider Physician Assistant; PCP Nurse Practitioner Family; Responsible Provider Nurse Practitioner Family; Visit Provider Family Medicine
DX: K80.70 Calculus of gallbladder and bile duct without cholecystitis without obstruction (principal); I10 Essential (primary) hypertension; R11.0 Nausea; G43.109 Migraine with aura, not intractable, without status migrainosus; N39.3 Stress incontinence (female) (male); D50.9 Iron deficiency anemia, unspecified; N94.10 Unspecified dyspareunia; R74.01 Elevation of levels of liver transaminase levels; D58.2 Other hemoglobinopathies
CPT/HCPCS: 00123; 80053; 81025; 83690; 96361; 96374; 96375; 99221; 99285; 76705; 81003; 83735; 85025; 99222; 99238; G0378; J0360; J0780; J1885; J2270; J2405